=== PATIENT | male | born 1975 | race Caucasian/White ===

== ENCOUNTER 2025-07-19 21:12 | Inpatient (IN) | payer MEDICAID, OTHER ==
[~2025-07-19] VITALS: Ht 185.4 cm; Wt 150.1 kg
--- NOTE | 2025-07-19 21:39 | ED.PDOC ---
SOB-HPI HPI Comments 50-year-old female with a presents to the ED for chief complaint shortness of breath Patient states he has been having shortness of breath with associated bilateral lower extremity swelling for the past two weeks. Patient states he has been having noted shortness of breath with exertion and came due to increased shortness of breath over the past few days Patient otherwise has ordered history hypertension and is noted of hypertensive in the ED with a blood pressure of 197/103 with otherwise stable vitals Patient in the ED otherwise states that he is compliant with his medications Patient denies any other symptoms at this time Past medical history: Diabetes, hypertension, hyperlipidemia, anxiety Past Surgical history: Denies Allergies: Denies Medications: Unknown Social history: Tonight ETOH use, denies drug use, denies tobacco use mcintosh: SOB? swelling from abd down. exersional sob. tato edema 09/14 b/l HPI: Poor Historian. REVIEW OF SYSTEMS: CONSTITUTIONAL: Denies acute: fever, diaphoresis, chills, generalized weakness. HEAD: Denies acute: headache, photophobia Eyes: Denies acute: Double vision, vision loss, eye pain, eye discharge. EARS: Denies acute: tinnitus, hearing loss, ear discharge, ear pain, THROAT: Denies acute: sore throat, swelling, difficulty swallowing , pain with swallowing, change in voice. NECK: Denies acute: neck pain, neck swelling, stiff neck. HEART: Denies acute : chest pain, palpitations, LUNGS: Denies acute: wheezing, cough, hemoptysis ABDOMEN: Denies acute: abdominal pain, Nausea, Vomiting, diarrhea, melena , hematemesis, hematochezia SKIN: Denies acute: rash, redness, lesions, itchiness. EXTREMITIES: Denies acute: calf pain, numbness, tingling, weakness, denies pain in extremity. Denies acute: Low back pain. Neuro: Denies acute: focal neurological deficit, motor or sensory focal neurological deficit, tremors, seizure like activity, confusion, dizziness, change in mental status, loss of bowel or bladder function, cauda equina like symptoms. : Denies acute: dysuria, hematuria, flank pain, increase in urinary frequency. PSYCH: Denies acute: hallucination, suicidal ideation, homicidal ideation. PHYSICAL EXAM: General: -----mild---acute distress, awake and alert. Head: normocephalic, atraumatic. No raccoon's eyes, no carmona sign. Neck: supple, trachea is midline, no swelling. Throat: Normal phonation. Eyes:, no erythema, no purulent discharge, no proptosis, no icterus. Heart: regular rate, regular rhythm, no significant murmur appreciated. Lungs: no apparent respiratory distress, Able to speak in full sentences. No wheezing, no rhonchi, no crackles. No stridors Clear to auscultation bilaterally. Abdomen: non tender to palpation, non distended, soft, no guarding, no rebound, + bowel sounds. Obese Neuro: Awake, Alert, oriented to name, self, situation, follows commands GCS=15. Speech is normal. Skin: no petechia, no purpura, no cyanosis, non-pale, not jaundice. Lower extremities: --2/4 b/l - Pitting edema no deformity, no focal swelling, no calf TTP. Makes eye contact. moves all four extremities. Face: no apparent facial droop. Ambulating in the ED independently. ED COURSE: DISCLAIMER: This medical document was created using an electronic medical record system with voice recognition software and computerized dictation system. Although this document has been carefully reviewed, there might still be some phonetic and typographical errors. Occasional wrong-word or "sound-alike" substitutions may have occurred due to the inherent limitations of voice recognition software. These areas are purely typographical due to imperfections of the software programs and do not reflect any compromise in the patient's medical care. Please read the chart carefully and recognize, using context, where these substitutions have occurred. Chief Complaint: Shortness of Breath Time Seen by MD: 21:38 Reviewed notes: Medications, Allergies Information Source: Patient Mode of Arrival: Ambulatory Brought in by: self Past Medical History PAST MEDICAL HISTORY: DM, High Lipids, HTN Surgical History: Denies all surgeries Family History Family History: Reviewed,noncontributory to illness Social History Smoker: Non-Smoker Alcohol: Denies ETOH Use Drugs: Denies Drug Use Lives In: Home EKG EKG : Pulse Rate (adult): 77 [place]: Normal Cardiac Rhythm: NSR Block: None Hypertrophy: None ST: Normal Was a procedure done? Was a procedure done?: No Differential Dx Differential Diagnosis: Other (DDx include ACS, unstable angina, anxiety, PE, pneumothroax, neoplasm, cardiac ischemia, COPD, asthma, CHF, pleural effusion, tobacco abuse, pneumonia, hypoxia, hypercapnia, anemia., infection/sepsis., pulmonary edema. Asthma, Cardiac tamponade, infection.) X-Ray, Labs, Meds, VS Vital Signs Date Time Temp Pulse Resp B/P (MAP) Pulse Ox O2 Delivery O2 Flow Rate FiO2 07/19/25 21:39 77 07/19/25 21:23 77 07/19/25 21:13 97.3 79 20 197/103 95 97.3 Lab Test 07/20/25 00:17 07/19/25 23:34 07/19/25 22:27 Range/Units Blood Gas Specimen Type Arterial Blood Gas Sample Site Right radial Blood Gas Patient Temperature 37.0 Arterial Blood Date Drawn [id number] Arterial Blood pH 7.383 7.350-7.450 Arterial Blood Partial Pressure CO2 43.8 35.0-48.0 mmHg Arterial Blood Partial Pressure O2 70.7 L 83.0-108.0 mmHg Arterial Blood HCO3 25.5 21.0-28.0 mmol/L Arterial Blood Oxygen Saturation 94.2 94.0-98.0 % Arterial Blood Base Excess 0.3 -2.0-3.0 mmol/L Arterial Blood Oxyhemoglobin 92.4 L 94.0-98.0 % Arterial Blood Carboxyhemoglobin 1.4 0.5-1.5 % Arterial Blood Methemoglobin 0.5 0.0-1.5 % Arterial Blood Deoxyhemoglobin 5.7 H 0.0-5.0 % Harpal Test Positive Blood Gas Total Hemoglobin 11.30 L 13.5-17.5 g/dL Blood Gas Modality Room air Blood Gas Spontaneous Rate 18 FiO2 % 21.0 Troponin I High Sensitivity 16 16 </=54 ng/L White Blood Count 9.4 4.4-10.8 10^3/uL Red Blood Count 3.87 L 4.5-5.90 10^6/uL Hemoglobin 10.9 L 13.5-17.5 g/dL Hematocrit 32.8 L 41.0-53.0 % Mean Corpuscular Volume 84.7 80.0-100.0 fL Mean Corpuscular Hemoglobin 28.2 28.0-32.0 pg Mean Corpuscular Hemoglobin Concent 33.3 32.0-36.0 g/dL Red Cell Distribution Width 15.6 H 11.8-14.3 % Platelet Count 299 140-450 10^3/uL Mean Platelet Volume 6.7 L 6.9-10.8 fL Neutrophils (%) (Auto) 71.0 37.0-80.0 % Lymphocytes (%) (Auto) 20.0 10.0-50.0 % Monocytes (%) (Auto) 6.8 0.0-12.0 % Eosinophils (%) (Auto) 1.8 0.0-7.0 % Basophils (%) (Auto) 0.4 0.0-2.0 % Neutrophils # (Auto) 6.7 1.6-8.6 10 ^3/uL Lymphocytes # (Auto) 1.9 0.4-5.4 10 ^3/uL Monocytes # (Auto) 0.6 0-1.3 10 ^3/uL Eosinophils # (Auto) 0.2 0-0.8 10 ^3/uL Basophils # (Auto) 0 0-0.2 10 ^3/uL Nucleated Red Blood Cells 0.0 % Sodium Level 142 136-145 mmol/L Potassium Level 3.9 3.5-5.1 mmol/L Chloride Level 106 98-107 mmol/L Carbon Dioxide Level 30 20-31 mmol/L Anion Gap 6 5-15 Blood Urea Nitrogen 26 H 9-23 mg/dL Creatinine 1.12 0.700-1.30 mg/dL Glomerular Filtration Rate Calc 80 >90 mL/min BUN/Creatinine Ratio 23.2 H 10.0-20.0 Serum Glucose 74 74-106 mg/dL Calcium Level 9.3 8.7-10.4 mg/dL Total Bilirubin 0.2 0.2-1.0 mg/dL Aspartate Amino Transferase (AST) 22 13-40 U/L Alanine Aminotransferase (ALT) 18 7-40 U/L Alkaline Phosphatase 182 H 46-116 U/L B-Type Natriuretic Peptide 46.58 0-100 pg/mL Total Protein 6.7 5.7-8.2 g/dL Albumin 3.9 3.2-4.8 g/dL [address] [address] Ph: [phone] DIAGNOSTIC IMAGING Diagnostic Imaging Report : [id number] Signed PATIENT: SULAIMAN MCINTOSH ACCT: [id number] UNIT: [id number] : 1975 LOC: ER ROOM / BED: / AGE / SEX: 50 / M ADM STATUS: REG ER SERVICE 14 ORDERING PHYSICIAN: SERGIO DAVIS DO PROCEDURE(s): CXRP - CHEST PORTABLE REASON: SOB ORDER NUMBER(s): [id number], ACCESSION NUMBER(s): [id number] CHEST RADIOGRAPH INDICATION: SOB TECHNIQUE: Single frontal view of the chest was obtained. COMPARISON: None FINDINGS: Pulmonary vascular congestion. No significant pleural effusion. No pneumothorax. Mildly enlarged cardiomediastinal silhouette. IMPRESSION: Cardiomegaly and pulmonary vascular congestion. ATED BY: VIVI SPIVEY MD DICTATED DATE/TIME: 07/19/252247 SIGNED BY: VIVI SPIVEY MD SIGNED DATE/TIME: 07/19/252247 CC: Time of 1ST Reevaluation: 22:10 Reevaluation 1ST: Unchanged Patient Education/Counseling: Diagnosis, Treatment Family Education/Counseling: No Family Present Comments MDM: patient presented with the above HPI.--volume overload and dyspnea---workup was initiated. patient was found with the above mentioned diagnosis. the following medications were ordered: please refer to order lists of meds and tests obtained by myself Dr. Davis. Patient ED course and VS have been stabilized. Patient has been reassessed in the ED and remained in a stable condition. Pertinent incidental findings were discussed with the patient and/or family. Patient/family voices understanding and is agreeable with plan. Patient has been observed in the ED adequate length of time to insure improvement/stability. Escalation of care considered: Consideration of escalation to observation or admission Patient was ADMITTED to the medicine team for further evaluation and treatment of their presentation. All the reports of any imaging studies that were ordered by myself were reviewed by myself. SEPSIS Sepsis Screen Date sepsis recognized/suspect: Jul 19, 2025 Time Sepsis recognized/suspect: 2112 Recent Procedure: No On Antibiotic Therapy: No Respiratory Rate >20: No Heart Rate >90: No Temp<36 C (96.8 F) or >38.3 C: No SBP <90 or MAP <65 mmHG: No New Acute Mental Status Change: No Is the patient on CPAP, BIPAP,: No Physician Orders Organizational Development Consultant (07/19/25 ) Urinalysis (07/19/25 22:15) Chest Portable (07/19/25 22:15) Troponin-I Hs (07/20/25 01:15) Abg W/ Co-Ox (07/19/25 23:54) Vital Signs Date Time Temp Pulse Resp B/P (MAP) Pulse Ox O2 Delivery O2 Flow Rate FiO2 07/19/25 21:39 77 07/19/25 21:23 77 07/19/25 21:13 97.3 79 20 197/103 95 97.3 Laboratory Tests Test 07/19/25 22:27 White Blood Count 9.4 10^3/uL (4.4-10.8) Departure 1 Departure Time of Disposition: 00:49 Impression: Primary Impression: Dyspnea Additional Impressions: Hypoxemia Volume overload Pulmonary vascular congestion Disposition: ADMITTED INPATIENT Admit to: Tele Condition: Guarded Discharged With: Self Critical Care Note Critical Care Time?: Yes (35 min-critical care time only) Heart Score Heart Score: Heart Score Response (Comments) Value History Slightly Suspicious 0 EKG Normal 0 Age 45-64 1 Risk Factors >3 or Hx ASHD 2 Troponin Normal limit 0 Total 3 I personally scribed for SERGIO DAVIS DO ([email or web address]) on 07/19/25 at 21:39. Electronically submitted by Ashley Estrella ([email or web address]). I personally scribed for SERGIO DAVIS DO ([email or web address]) on 07/19/25 at 22:54. Electronically submitted by Cali Alcaraz ([email or web address]). SERGIO DAVIS DO Jul 19, 2025 21:39
--- NOTE | 2025-07-19 22:17 | ECG ---
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
--- NOTE | 2025-07-19 22:50 | DVH ---
CHEST RADIOGRAPH INDICATION: SOB TECHNIQUE: Single frontal view of the chest was obtained. COMPARISON: None FINDINGS: Pulmonary vascular congestion. No significant pleural effusion. No pneumothorax. Mildly enlarged cardiomediastinal silhouette. IMPRESSION: Cardiomegaly and pulmonary vascular congestion.
[2025-07-19 22:51] LABS: Hematocrit 32.8 % (41.0-53.0); Hemoglobin 10.9 g/dL (13.5-17.5); Mean Corpuscular Hemoglobin 28.2 pg (28.0-32.0); Mean Corpuscular Volume 84.7 fL (80.0-100.0); Nucleated Red Blood Cells % 0.0 %
[2025-07-19 23:18] LABS: Alanine Aminotransferase 18 U/L (7-40); Albumin 3.9 g/dL (3.2-4.8); Anion Gap 6 (5-15); BUN/Creatinine Ratio 23.2 (10.0-20.0); Calcium 9.3 mg/dL (8.7-10.4); Carbon Dioxide 30 mmol/L (20-31); Chloride 106 mmol/L (98-107); Glucose 74 mg/dL (74-106); Potassium 3.9 mmol/L (3.5-5.1); Sodium 142 mmol/L (136-145); Total Protein 6.7 g/dL (5.7-8.2)
[2025-07-19 23:26] LABS: Alkaline Phosphatase 182 U/L (46-116); Bilirubin, Total 0.2 mg/dL (0.2-1.0); Blood Urea Nitrogen 26 mg/dL (9-23)
[2025-07-20 00:30] LABS: Base Excess 0.3 mmol/L (-2.0-3.0)
[2025-07-20] MEDS ORDERED: MORPHINE SULFATE INJ 2 MG/ml SYRG IV PRN (01:00)
[2025-07-20] MEDS ORDERED: TEMAZEPAM 15 MG CAP PO PRN (01:00)
[2025-07-20] MEDS ORDERED: DEXTROSE (50%) 50ML SYRG IV PRN (01:00)
[2025-07-20] MEDS ORDERED: NITROGLYCERIN 0.4 MG SL TAB SL PRN (01:00)
[2025-07-20] MEDS ORDERED: ALBUTEROL SULF 2.5 MG/0.5ML(0.5%) NEB SOLN NEB PRN (01:00)
--- NOTE | 2025-07-20 01:17 | DVHHP2 ---
History of Present Illness Reason for Visit: Shortness for breath History of Present Illness 50-year-old male presents for evaluation of shortness for breath. Patient reports a one-week history of worsening shortness for breath with associated chest tightness and lower extremity swelling. He states symptoms worse with exertion. He also reports orthopnea. No fever or chills. Past Medical History Diabetes mellitus, hypertension, CHF, dyslipidemia Past Surgical History Denies Family History Noncontributory Smoke: No ALCOHOL: none Drugs: None Lives: with Family Review of Systems Review of Systems Review of systems are currently negative otherwise addressed in HPI. Allergies: Coded Allergies: NO KNOWN ALLERGIES (Unverified , 07/19/25) Medications Current Medications Medications Dose Ordered Sig/Carlotta Route Start Time Stop Time Status Last Admin Dose Admin Patient Own Medication 20 mg HS PO 07/20/25 22:00 UNV Lisinopril 40 mg DAILY PO 07/20/25 10:00 UNV Metoprolol Tartrate 25 mg BID PO 07/20/25 10:00 UNV Hydralazine HCl 10 mg Q6HP PRN IV 07/20/25 01:00 UNV Aspirin 81 mg DAILY PO 07/20/25 10:00 UNV Diagnostic Test (Pha) 1 strip ACHS 07/20/25 07:00 UNV Insulin Human Regular ACHS SC 07/20/25 07:00 UNV Dextrose 50 ml UD PRN IV 07/20/25 01:00 UNV Acetaminophen/ Hydrocodone Bitart 1 tab Q4HP PRN PO 07/20/25 01:00 UNV Temazepam 15 mg QHSP PRN PO 07/20/25 01:00 UNV Ondansetron HCl 4 mg Q4HP PRN IV 07/20/25 01:00 UNV Acetaminophen 650 mg Q6HP PRN PO 07/20/25 01:00 UNV Nitroglycerin 0.4 mg Q5MINP PRN SL 07/20/25 01:00 UNV Morphine Sulfate 2 mg Q30M PRN IV 07/20/25 01:00 UNV Albuterol 2.5 mg Q6HPRN PRN NEB 07/20/25 01:00 UNV Furosemide 20 mg BIDD IV 07/20/25 06:00 UNV Exam Vital Signs Vital Signs Date Time Temp Pulse Resp B/P (MAP) Pulse Ox O2 Delivery O2 Flow Rate FiO2 07/20/25 01:11 98.1 79 20 189/104 132 95 98.1 Exam Gen: 50-year-old male in mild distress, morbidly obese Skin: Warm, dry, normal color and texture, no rash. HEENT: Normocephalic atraumatic, mucous membranes moist and pink. Neck: Cervical and supraclavicular nodes normal without enlargement, trachea is midline, thyroid gland is normal without masses. Pulmonary: Clear to auscultation and percussion bilaterally. Cardiac: Regular rate and rhythm. No murmur Abdomen: Soft, nontender, nondistended, bowel sounds present all 4 quadrants, no guarding, no rigidity, no organomegaly. Extremities: No cyanosis, clubbing, plus two bilateral pedal edema Neuro: Cranial nerves II through XII grossly intact, normal affect and speech, no focal motor deficits. Labs/Xrays ORDERING PHYSICIAN: SERGIO DAVIS DO PROCEDURE(s): CXRP - CHEST PORTABLE REASON: SOB ORDER NUMBER(s): [id number], ACCESSION NUMBER(s): [id number] CHEST RADIOGRAPH INDICATION: SOB TECHNIQUE: Single frontal view of the chest was obtained. COMPARISON: None FINDINGS: Pulmonary vascular congestion. No significant pleural effusion. No pneumothorax. Mildly enlarged cardiomediastinal silhouette. IMPRESSION: Cardiomegaly and pulmonary vascular congestion. Labs Test 07/20/25 00:17 07/19/25 23:34 07/19/25 22:27 Range/Units Blood Gas Specimen Type Arterial Blood Gas Sample Site Right radial Blood Gas Patient Temperature 37.0 Arterial Blood Date Drawn [id number] Arterial Blood pH 7.383 7.350-7.450 Arterial Blood Partial Pressure CO2 43.8 35.0-48.0 mmHg Arterial Blood Partial Pressure O2 70.7 L 83.0-108.0 mmHg Arterial Blood HCO3 25.5 21.0-28.0 mmol/L Arterial Blood Oxygen Saturation 94.2 94.0-98.0 % Arterial Blood Base Excess 0.3 -2.0-3.0 mmol/L Arterial Blood Oxyhemoglobin 92.4 L 94.0-98.0 % Arterial Blood Carboxyhemoglobin 1.4 0.5-1.5 % Arterial Blood Methemoglobin 0.5 0.0-1.5 % Arterial Blood Deoxyhemoglobin 5.7 H 0.0-5.0 % Harpal Test Positive Blood Gas Total Hemoglobin 11.30 L 13.5-17.5 g/dL Blood Gas Modality Room air Blood Gas Spontaneous Rate 18 FiO2 % 21.0 Troponin I High Sensitivity 16 </=54 ng/L White Blood Count 9.4 4.4-10.8 10^3/uL Red Blood Count 3.87 L 4.5-5.90 10^6/uL Hemoglobin 10.9 L 13.5-17.5 g/dL Hematocrit 32.8 L 41.0-53.0 % Mean Corpuscular Volume 84.7 80.0-100.0 fL Mean Corpuscular Hemoglobin 28.2 28.0-32.0 pg Mean Corpuscular Hemoglobin Concent 33.3 32.0-36.0 g/dL Red Cell Distribution Width 15.6 H 11.8-14.3 % Platelet Count 299 140-450 10^3/uL Mean Platelet Volume 6.7 L 6.9-10.8 fL Neutrophils (%) (Auto) 71.0 37.0-80.0 % Lymphocytes (%) (Auto) 20.0 10.0-50.0 % Monocytes (%) (Auto) 6.8 0.0-12.0 % Eosinophils (%) (Auto) 1.8 0.0-7.0 % Basophils (%) (Auto) 0.4 0.0-2.0 % Neutrophils # (Auto) 6.7 1.6-8.6 10 ^3/uL Lymphocytes # (Auto) 1.9 0.4-5.4 10 ^3/uL Monocytes # (Auto) 0.6 0-1.3 10 ^3/uL Eosinophils # (Auto) 0.2 0-0.8 10 ^3/uL Basophils # (Auto) 0 0-0.2 10 ^3/uL Nucleated Red Blood Cells 0.0 % Sodium Level 142 136-145 mmol/L Potassium Level 3.9 3.5-5.1 mmol/L Chloride Level 106 98-107 mmol/L Carbon Dioxide Level 30 20-31 mmol/L Anion Gap 6 5-15 Blood Urea Nitrogen 26 H 9-23 mg/dL Creatinine 1.12 0.700-1.30 mg/dL Glomerular Filtration Rate Calc 80 >90 mL/min BUN/Creatinine Ratio 23.2 H 10.0-20.0 Serum Glucose 74 74-106 mg/dL Calcium Level 9.3 8.7-10.4 mg/dL Total Bilirubin 0.2 0.2-1.0 mg/dL Aspartate Amino Transferase (AST) 22 13-40 U/L Alanine Aminotransferase (ALT) 18 7-40 U/L Alkaline Phosphatase 182 H 46-116 U/L B-Type Natriuretic Peptide 46.58 0-100 pg/mL Total Protein 6.7 5.7-8.2 g/dL Albumin 3.9 3.2-4.8 g/dL SEPSIS Sepsis Screen Date sepsis recognized/suspect: Jul 19, 2025 Time Sepsis recognized/suspect: 2112 Recent Procedure: No On Antibiotic Therapy: No Respiratory Rate >20: No Heart Rate >90: No Temp<36 C (96.8 F) or >38.3 C: No SBP <90 or MAP <65 mmHG: No New Acute Mental Status Change: No Is the patient on CPAP, BIPAP,: No Physician Orders Airplane Mechanic Apprentice (07/19/25 ) Urinalysis (07/19/25 22:15) Chest Portable (07/19/25 22:15) Troponin-I Hs (07/20/25 01:15) Abg W/ Co-Ox (07/19/25 23:54) * Cardiology Consult (07/20/25 00:56) (Nf) Crestor (07/20/25 22:00) Lisinopril Tablet (Zestril Tablet) (07/20/25 10:00) Metoprolol Tartrate Tablet (Lopressor Ta (07/20/25 10:00) Hydralazine Injection (Apresoline Inject (07/20/25 01:00) Aspirin Tablet (07/20/25 10:00) Basic Metabolic Panel (07/21/25 04:00) Glucose Blood (Accu-Chek Comfort Curve T (07/20/25 07:00) Insulin R (Human) (Insulin R) (07/20/25 07:00) Dextrose 50% Syringe (07/20/25 01:00) Admit (07/20/25 00:56) Hydrocodone-Acet 5/325mg Tab (Addison 5/32 (07/20/25 01:00) Temazepam (Restoril) (07/20/25 01:00) Ondansetron Hcl (Zofran) (07/20/25 01:00) Cardiac Diet-2gna,Lofat,Lochol (07/20/25 Breakfast) Echo 2d Mode Cardiac Dop (07/20/25 00:56) Condition: Stable (07/20/25 00:56) Acetaminophen Tablet (Tylenol Tablet) (07/20/25 01:00) Bedrest With Bathroom Privileg (07/20/25:56) Nitroglycerin Sublingual (Ntrostat Subli (07/20/25 01:00) Morphine Sulfate Injection (07/20/25 01:00) Stat Ekg For Chest Pain (07/20/25:56) Notify Md Of Changes From Base (07/20/25 00:56) Tub Operator For 24 Hours (07/20/25 00:56) Emergency Dysrhythmia Protocol (07/20/25:56) Rhythm Strips Once Every Shift (07/20/25 00:56) Oxygen By Nasal Cannula (07/20/25 00:56) Albuterol Medneb (Ventolin Medneb) (07/20/25 01:00) Furosemide Injection (Lasix Injection) (07/20/25 06:00) Vital Signs Date Time Temp Pulse Resp B/P (MAP) Pulse Ox O2 Delivery O2 Flow Rate FiO2 07/20/25 01:11 98.1 79 20 189/104 (132) 95 98.1 07/19/25 21:39 77 07/19/25 21:23 77 07/19/25 21:13 97.3 79 20 197/103 95 97.3 Laboratory Tests Test 07/19/25 22:27 White Blood Count 9.4 10^3/uL (4.4-10.8) Assessment/Plan Assessment/Plan Assessment Acute on chronic respiratory failure CHF exacerbation Hypertensive urgency Diabetes mellitus Morbid obesity Plan Admit the patient to telemetry to the hospitalist IV Lasix Cardiology consultation Echocardiogram pending Resume home medications Continue treatment per orders Plan discussed with: Patient My Orders Orders - SANDY POLK Procedure Category Date Status Time * Cardiology Consult CONS 07/20/25 Transmitted 00:56 (Nf) Crestor PHA 07/20/25 Logged 22:00 Lisinopril Tablet PHA 07/20/25 Logged (Zestril Tablet) 10:00 Metoprolol Tartrate PHA 07/20/25 Logged Tablet (Lopressor Ta 10:00 Hydralazine Injection PHA 07/20/25 Logged (Apresoline Inject 01:00 Aspirin Tablet PHA 07/20/25 Logged 10:00 Basic Metabolic Panel LAB 07/21/25 Verified 04:00 Glucose Blood PHA 07/20/25 Logged (Accu-Chek Comfort 07:00 Insulin R (Human) PHA 07/20/25 Logged (Insulin R) 07:00 Dextrose 50% Syringe PHA 07/20/25 Logged 01:00 Admit ADMIT 07/20/25 Transmitted 00:56 Hydrocodone-Acet PHA 07/20/25 Logged 5/325mg Tab (Addison 01:00 Temazepam (Restoril) PHA 07/20/25 Logged 01:00 Ondansetron Hcl PHA 07/20/25 Logged (Zofran) 01:00 Cardiac DIET 07/20/25 Transmitted Diet-2gna,Lofat,Lochol Breakfast Echo 2d Mode Cardiac US 07/20/25 Logged DOP 00:56 Condition: Stable [facility] 07/20/25 In Process 00:56 Acetaminophen Tablet [facility] 07/20/25 Logged (Tylenol Tablet) 01:00 Bedrest With Bathroom [facility] 07/20/25 In Process Privileg 00:56 Nitroglycerin PHA 07/20/25 Logged Sublingual (Ntrostat 01:00 Morphine Sulfate PHA 07/20/25 Logged Injection 01:00 Stat Ekg For Chest [facility] 07/20/25 In Process Pain 00:56 Notify Of Changes [facility] 07/20/25 In Process From Base 00:56 Tub Operator For [facility] 07/20/25 In Process 24 Hours 00:56 Emergency Dysrhythmia [facility] 07/20/25 In Process Protocol 00:56 Rhythm Strips Once [facility] 07/20/25 In Process Every Shift 00:56 Oxygen By Nasal RT 07/20/25 Transmitted Cannula 00:56 Albuterol Medneb PHA 07/20/25 Logged (Ventolin Medneb) 01:00 Furosemide Injection PHA 07/20/25 Logged (Lasix Injection) 06:00 Date of Service: Jul 20, 2025 Billing Provider: Berkley Iverson Common Visit Codes: [id number] INP/OBS CARE (HIGH) SANDY POLK [facility] Jul 20, 2025 01:17
[2025-07-20] MEDS: FUROSEMIDE 100 MG/10ML VIAL IV ONE (02:07)
[2025-07-20 02:15] VITALS: BP 189/104; PULSE 79; RESP 20; TEMP 98.1; O2SAT 95
[2025-07-20 02:27] VITALS: O2SAT 98
[2025-07-20 03:16] LABS: Urine Protein, UAD 2+ (Negative)
[2025-07-20] MEDS: METOPROLOL TARTRATE 25 MG TAB PO SCH (07:58)
[2025-07-20] MEDS: ASPirin-EC 81 mg tab PO SCH (07:59)
[2025-07-20] MEDS: LISINOPRIL 20 MG TAB PO SCH (07:59)
[2025-07-20] MEDS: ACCU-CHEK COMFORT CURVE STRIP VI SCH (08:00)
[2025-07-20] MEDS: InsuLIN REG 1unit/0.01ml Soln (100units/ml) SC SCH (08:00)
[2025-07-20] MEDS: FUROSEMIDE 20 MG/2 ML VIAL IV SCH (08:00)
[2025-07-20 08:26] VITALS: O2SAT 95
--- NOTE | 2025-07-20 10:52 | DVHINCON2 ---
Date Seen: Jul 20, 2025 Referring Physician SEB Ferris Reason for Consultation CHF History of Present Illness This is a 50-year-old man who presented to the emergency room with a chief complaint of shortness of breath for one week. The patient complains of progressive shortness of breath associated with PND, orthopnea, wheezing, increased abdominal girth, and bilateral lower extremity edema. Denies chest pain, palpitations, diaphoresis, dizziness, or syncopal events. He underwent a 12 lead electrocardiogram revealing a sinus rhythm with nonspecific T-wave inversion to lateral leads. Reports a recent visit to [facility] on 05/2025. At that time, he was treated with and sent home with lasix with PCP refilling it at [facility]. He denies undergoing a cardiac evaluation or cardiac work-up including a transthoracic echocardiogram, stress test, or cardiac catheterization. Reports a significant medical history of hypertension, dyslipidemia, insulin-dependent diabetes mellitus, anxiety, and morbid obesity. Past Medical History Past medical history reviewed. No other significant than mentioned above. Past Surgical History Past surgical history reviewed. No other significant than mentioned above. Family History Family history reviewed. Mother with CHF. Social History Denies the use of illicit drugs or tobacco use. Admits to occasional alcohol use. Allergies: Coded Allergies: NO KNOWN ALLERGIES (Unverified , 07/19/25) Home Meds Home medications reviewed. Current Medications Current Medications Medications (Trade) Dose Ordered Sig/Carlotta Route PRN Reason Start Time Stop Time Status Last Admin Atorvastatin Calcium (Lipitor) 40 mg HS PO 07/20/25 22:00 Lisinopril (Zestril Tablet) 40 mg DAILY PO 07/20/25 10:00 07/20/25 07:59 Metoprolol Tartrate (Lopressor Tablet) 25 mg BID PO 07/20/25 10:00 07/20/25 07:58 Hydralazine HCl (Apresoline Injection) 10 mg Q6HP PRN IV SBP>150 07/20/25 01:00 Aspirin (Ecotrin Enteric Coated Tablet) 81 mg DAILY PO 07/20/25 10:00 07/20/25 07:59 Diagnostic Test (Pha) (Accu-Chek Comfort Curve T) 1 strip ACHS 07/20/25 07:00 07/20/25 08:00 Insulin Human Regular (InsuLIN R) ACHS SC 07/20/25 07:00 Dextrose 50 ml UD PRN IV Blood Sugar LESS THAN 60 07/20/25 01:00 Acetaminophen/ Hydrocodone Bitart ([place]out 5/325MG Tab) 1 tab Q4HP PRN PO MODERATE PAIN (4-6 PAIN SCALE) 07/20/25 01:00 Temazepam (Restoril) 15 mg QHSP PRN PO FOR INSOMNIA 07/20/25 01:00 Ondansetron HCl (Zofran) 4 mg Q4HP PRN IV NAUSEA / VOMITING 07/20/25 01:00 Acetaminophen (Tylenol Tablet) 650 mg Q6HP PRN PO PAIN SCALE 1-3 OR TEMP>100.4 07/20/25 01:00 Nitroglycerin (Ntrostat Sublingual) 0.4 mg Q5MINP PRN SL FOR CHEST PAIN 07/20/25 01:00 Morphine Sulfate 2 mg Q30M PRN IV FOR CHEST PAIN 07/20/25 01:00 Albuterol (Ventolin Medneb) 2.5 mg Q6HPRN PRN NEB SHORTNESS OF BREATH 07/20/25 01:00 Furosemide (Lasix Injection) 20 mg BIDD IV 07/20/25 06:00 07/20/25 08:00 Review of Systems Constitutional: No symptom reported Ears, Nose, & Throat: No symptom reported Eyes: No symptom reported Neurological: No symptoms reported Pulmonary/Respiratory: SOB, HAWKINS, PND, orthopnea Cardiovascular: BLE edema Gastrointestinal: Increased abdominal girth Genitourinary: No symptom reported Musculoskeletal: No symptom reported Skin: No symptom reported Psychiatric: No symptom reported Endocrine: No symptom reported Hemotologic/Lymphatic: No symptom reported Vital Signs Vital Signs Date Time Temp Pulse Resp B/P (MAP) Pulse Ox O2 Delivery O2 Flow Rate FiO2 07/20/25 08:00 179/86 07/20/25 07:58 79 07/20/25 07:12 97.9 20 96 97.9 07/20/25 02:27 Room Air* 0 21 Physical Exam General Appearance: Cooperative. Well developed. Morbidly obese. In no acute distress Head Exam: Normal inspection Neck Exam: Normal inspection. Non-tender. Normal alignment Pulmonary/Respiratory: Chest non-tender. Diminished bilateral breath sounds Cardiovascular/Chest: Regular rate and rhythm. S1, S2. Sinus rhythm with nonspecific T-wave inversion to lateral leads No murmurs. No JVD. Peripheral Pulses: 2+ Radial (R). 2+ Radial (L). 2+ Pedal (R). 2+ Pedal (L) Abdominal Exam: Normal bowel sounds Ankle Exam: Positive ankle nonpitting edema Lower extremities: Positive lower extremity nonpitting edema Neuro/Mental Status: A&O x4. Coherent Thoughts/Psych: Normal thought pattern. Appropriate mood and affect. Good judgement and insight Appearance: In no acute distress Skin Exam: Normal inspection. Normal color. Warm. Dry Labs/Diagnostic Data Labs Test 07/20/25 07:52 07/20/25 01:41 07/20/25 01:39 07/20/25 00:17 Range/Units POC Glucose 82 70-106 mg/dl Urine Color Light-yellow Yellow Urine Clarity Clear Clear Urine pH 5.5 5.0-9.0 Urine Specific [place] 1.014 1.001-1.035 Urine Protein 2+ H Negative Urine Ketones Negative Negative Urine Blood 1+ H Negative /uL Urine Nitrite Negative Negative Urine Bilirubin Negative Negative Urine Urobilinogen Normal Negative mg/dL Urine Leukocyte Esterase Negative Negative /uL Urine RBC 3 0 - 3 /hpf Urine Microscopic WBC < 1 0-3 /HPF Urine Squamous Epithelial Cells Few <5 /hpf Urine Bacteria None seen None Seen /hpf Urine Mucus Few None Seen Urine Sperm Present None Seen /hpf Urine Glucose Normal Normal mg/dL Troponin I High Sensitivity 15 </=54 ng/L Blood Gas Specimen Type Arterial Blood Gas Sample Site Right radial Blood Gas Patient Temperature 37.0 Arterial Blood Date Drawn [id number] Arterial Blood pH 7.383 7.350-7.450 Arterial Blood Partial Pressure CO2 43.8 35.0-48.0 mmHg Arterial Blood Partial Pressure O2 70.7 L 83.0-108.0 mmHg Arterial Blood HCO3 25.5 21.0-28.0 mmol/L Arterial Blood Oxygen Saturation 94.2 94.0-98.0 % Arterial Blood Base Excess 0.3 -2.0-3.0 mmol/L Arterial Blood Oxyhemoglobin 92.4 L 94.0-98.0 % Arterial Blood Carboxyhemoglobin 1.4 0.5-1.5 % Arterial Blood Methemoglobin 0.5 0.0-1.5 % Arterial Blood Deoxyhemoglobin 5.7 H 0.0-5.0 % Harpal Test Positive Blood Gas Total Hemoglobin 11.30 L 13.5-17.5 g/dL Blood Gas Modality Room air Blood Gas Spontaneous Rate 18 FiO2 % 21.0 Test 07/19/25 22:27 Range/Units White Blood Count 9.4 4.4-10.8 10^3/uL Red Blood Count 3.87 L 4.5-5.90 10^6/uL Hemoglobin 10.9 L 13.5-17.5 g/dL Hematocrit 32.8 L 41.0-53.0 % Mean Corpuscular Volume 84.7 80.0-100.0 fL Mean Corpuscular Hemoglobin 28.2 28.0-32.0 pg Mean Corpuscular Hemoglobin Concent 33.3 32.0-36.0 g/dL Red Cell Distribution Width 15.6 H 11.8-14.3 % Platelet Count 299 140-450 10^3/uL Mean Platelet Volume 6.7 L 6.9-10.8 fL Neutrophils (%) (Auto) 71.0 37.0-80.0 % Lymphocytes (%) (Auto) 20.0 10.0-50.0 % Monocytes (%) (Auto) 6.8 0.0-12.0 % Eosinophils (%) (Auto) 1.8 0.0-7.0 % Basophils (%) (Auto) 0.4 0.0-2.0 % Neutrophils # (Auto) 6.7 1.6-8.6 10 ^3/uL Lymphocytes # (Auto) 1.9 0.4-5.4 10 ^3/uL Monocytes # (Auto) 0.6 0-1.3 10 ^3/uL Eosinophils # (Auto) 0.2 0-0.8 10 ^3/uL Basophils # (Auto) 0 0-0.2 10 ^3/uL Nucleated Red Blood Cells 0.0 % Sodium Level 142 136-145 mmol/L Potassium Level 3.9 3.5-5.1 mmol/L Chloride Level 106 98-107 mmol/L Carbon Dioxide Level 30 20-31 mmol/L Anion Gap 6 5-15 Blood Urea Nitrogen 26 H 9-23 mg/dL Creatinine 1.12 0.700-1.30 mg/dL Glomerular Filtration Rate Calc 80 >90 mL/min BUN/Creatinine Ratio 23.2 H 10.0-20.0 Serum Glucose 74 74-106 mg/dL Calcium Level 9.3 8.7-10.4 mg/dL Total Bilirubin 0.2 0.2-1.0 mg/dL Aspartate Amino Transferase (AST) 22 13-40 U/L Alanine Aminotransferase (ALT) 18 7-40 U/L Alkaline Phosphatase 182 H 46-116 U/L B-Type Natriuretic Peptide 46.58 0-100 pg/mL Total Protein 6.7 5.7-8.2 g/dL Albumin 3.9 3.2-4.8 g/dL Assessment Hypertensive urgency De Salvatore decompensated unspecified HF, NYHA Class III Insulin-dependent diabetes mellitus (HgbA1C 6.4%) Dyslipidemia Morbid obesity Plan/Recommendation (Dr. Miguel) We will continue further cardiac evaluation with a transthoracic echocardiogram to rule out structural heart disease. In the meantime, initiate GDMT and titrate as tolerated. Continue preload and afterload reduction, strict I&Os, daily weight, and fluid restriction. Continue aggressive blood pressure control. Replete electrolytes as necessary. Monitor ECG changes closely and notify accordingly. Further orders per clinical course. Thank you for allowing us to participate in this patient's care. Please call if you have any questions or concerns. This medical document was created using an electronic medical record system with voice recognition software and computerized dictation system. Although this document has been carefully reviewed, there might still be some phonetic and typographical errors. Occasional wrong-word or ``sound-alike substitutions may have occurred due to the inherent limitations of voice recognition software. These areas are purely typographical due to imperfections of the software programs and do not reflect any compromise in the patient's medical care. Please read the chart carefully and recognize, using context, where these substitutions have occurred. Plan discussed with: Patient, Other NYHA Physical activity limitations: Class3(Marked) ordinary (activity causes symtoms) Date of Service: Jul 20, 2025 Billing Provider: SYLVESTER AREVALO Cardiology Common Codes: [id number] INP/OBS CARE (High) SYLVESTER AREVALO Jul 20, 2025 10:52
[2025-07-20 11:58] LABS: Hematocrit 33.8 % (41.0-53.0); Hemoglobin 11.5 g/dL (13.5-17.5); Mean Corpuscular Hemoglobin 28.5 pg (28.0-32.0); Mean Corpuscular Volume 84.0 fL (80.0-100.0); Nucleated Red Blood Cells % 0.0 %
[2025-07-20 12:13] LABS: Alanine Aminotransferase 21 U/L (7-40); Albumin 4.3 g/dL (3.2-4.8); Anion Gap 9 (5-15); BUN/Creatinine Ratio 21.0 (10.0-20.0); Blood Urea Nitrogen 22 mg/dL (9-23); Calcium 9.5 mg/dL (8.7-10.4); Carbon Dioxide 30 mmol/L (20-31); Chloride 102 mmol/L (98-107); Cholesterol 106 mg/dL (< 200); Potassium 3.9 mmol/L (3.5-5.1); Sodium 141 mmol/L (136-145); Total Protein 7.2 g/dL (5.7-8.2); Triglycerides 127 mg/dL (< 150)
[2025-07-20 12:14] LABS: Alkaline Phosphatase 200 U/L (46-116); Bilirubin, Total 0.4 mg/dL (0.2-1.0); Glucose 139 mg/dL (74-106); HDL Cholesterol 30 mg/dL (40-59); Magnesium 1.4 mg/dL (1.6-2.6)
[2025-07-20] MEDS: MAGNESIUM SULFATE 1GM/100ML 100 ML IV ONE (14:27)
[2025-07-20] MEDS: hydrALAZINE HCL 20 MG/ML VL IV PRN (14:30)
--- NOTE | 2025-07-20 16:18 | DVHPN2 ---
Subjective Patient continues to report having shortness of breath ambulation as well as lower extremity swelling. Reviewed: Care Plan, H&P, Labs, Medications Changes from previous H/P or p: No Changes General: Per HPI Objective Vitals Vital Signs Date Time Temp Pulse Resp B/P (MAP) Pulse Ox O2 Delivery O2 Flow Rate FiO2 07/20/25 14:30 181/108 07/20/25 14:30 75 07/20/25 08:26 95 Nasal Cannula 2.0 07/20/25 08:26 28 07/20/25 07:12 97.9 20 97.9 General Appearance: Alert, Oriented X3, Cooperative, mild distress HEENT: Atraumatic, PERRLA Lungs: Clear to auscultation, Normal air movement Cardiovascular: Normal S1, Normal S2 Abdomen: Normal bowel sounds, Soft, No tenderness Genitourinary: No Apparent Abnormalities Musculoskeletal: Normal sensory function, Normal motor function Extremities: Normal pulses, Other (Lower extremity swelling) Neuro: Normal gait, Normal speech Skin: Dry, Intact Psych/Mental Status: Mental status NL, Mood NL Medications Current Medications Medications Dose Ordered Sig/Carlotta Route Start Time Stop Time Status Last Admin Dose Admin Atorvastatin Calcium 40 mg HS PO 07/20/25 22:00 Lisinopril 40 mg DAILY PO 07/20/25 10:00 07/20/25 07:59 40 MG Metoprolol Tartrate 25 mg BID PO 07/20/25 10:00 07/20/25 07:58 25 MG Hydralazine HCl 10 mg Q6HP PRN IV 07/20/25 01:00 07/20/25 14:30 10 MG Aspirin 81 mg DAILY PO 07/20/25 10:00 07/20/25 07:59 81 MG Diagnostic Test (Pha) 1 strip ACHS 07/20/25 07:00 07/20/25 11:37 1 STRIP Insulin Human Regular ACHS SC 07/20/25 07:00 07/20/25 11:42 2 UNITS Dextrose 50 ml UD PRN IV 07/20/25 01:00 Acetaminophen/ Hydrocodone Bitart 1 tab Q4HP PRN PO 07/20/25 01:00 Temazepam 15 mg QHSP PRN PO 07/20/25 01:00 Ondansetron HCl 4 mg Q4HP PRN IV 07/20/25 01:00 Acetaminophen 650 mg Q6HP PRN PO 07/20/25 01:00 Nitroglycerin 0.4 mg Q5MINP PRN SL 07/20/25 01:00 Morphine Sulfate 2 mg Q30M PRN IV 07/20/25 01:00 Albuterol 2.5 mg Q6HPRN PRN NEB 07/20/25 01:00 Furosemide 40 mg BIDD IV 07/20/25 18:00 Empaglifozin 10 mg DAILY PO 07/21/25 10:00 Laboratory Results Laboratory Tests 07/20/25 11:46 Chemistry Test 07/19/25 22:27 07/20/25 11:46 Albumin 3.9 g/dL (3.2-4.8) 4.3 g/dL (3.2-4.8) Calcium Level 9.3 mg/dL (8.7-10.4) 9.5 mg/dL (8.7-10.4) Total Protein 6.7 g/dL (5.7-8.2) 7.2 g/dL (5.7-8.2) Magnesium Level 1.4 mg/dL (1.6-2.6) L Lipid panel Test 07/20/25 11:46 Cholesterol Level 106 mg/dL (< 200) HDL Cholesterol 30 mg/dL (40-59) L Triglycerides Level 127 mg/dL (< 150) Cardiac Markers Test 07/19/25 22:27 07/20/25 11:46 B-Type Natriuretic Peptide 46.58 pg/mL (0-100) 32.92 pg/mL (0-100) LFT Test 07/19/25 22:27 07/20/25 11:46 Alanine Aminotransferase (ALT) 18 U/L (7-40) 21 U/L (7-40) Alkaline Phosphatase 182 U/L (46-116) H 200 U/L (46-116) H Aspartate Amino Transferase (AST) 22 U/L (13-40) 22 U/L (13-40) Total Bilirubin 0.2 mg/dL (0.2-1.0) 0.4 mg/dL (0.2-1.0) HgA1c, TSH Test 07/20/25 11:46 Hemoglobin A1c 6.4 % A1C (<5.7) H Thyroid Stimulating Hormone (TSH) 0.74 uIU/mL (0.55-4.78) Urinalysis Test 07/20/25 01:41 Urine Color Light-yellow (Yellow) Urine Clarity Clear (Clear) Urine pH 5.5 (5.0-9.0) Urine Specific [place] 1.014 (1.001-1.035) Urine Protein 2+ (Negative) H Urine Ketones Negative (Negative) Urine Blood 1+ /uL (Negative) H Urine Nitrite Negative (Negative) Urine Bilirubin Negative (Negative) Urine Urobilinogen Normal mg/dL (Negative) Urine Leukocyte Esterase Negative /uL (Negative) Urine RBC 3 /hpf (0 - 3) Urine Microscopic WBC < 1 /HPF (0-3) Urine Squamous Epithelial Cells Few /hpf (<5) Urine Bacteria None seen /hpf (None Seen) Urine Mucus Few (None Seen) Urine Sperm Present /hpf (None Seen) Urine Glucose Normal mg/dL (Normal) Blood Gas Results Test 07/20/25 00:17 Arterial Blood pH 7.383 (7.350-7.450) FiO2 % 21.0 Labs and/or images reviewed: Labs reviewed by me, Image(s) reviewed by me Assessment/Plan Assessment/Plan Impression: -probable acute diastolic heart failure -morbid obesity -diabetes mellitus type 2 -hypomagnesemia -dyslipidemia Plan: -cardiology consultation: Recommendations reviewed -echocardiogram pending -guideline directed medical therapy -IV diuresis -potassium replacement -regular insulin sliding scale -Lifestyle modification education: 10 minutes spent discussing with the patient the need to alter caloric and quality of food and -repeat labs in a.m. Total time spent with patient discussing and formulating plan of care: 35 minutes. This medical document was created using an electronic medical record system with Netscape dictation system. Although this document has been carefully reviewed, there may still be some phonetic and typographical errors. These areas are purely typographical due to imperfections of the software programs, and do not reflect any compromise in the patient's medical care. Plan discussed with: Patient, Other (RN) Date of Service: Jul 20, 2025 Billing Provider: CHANTALE MINOR NP Common Visit Codes: [id number] INP/OBS CARE(HIGH) CHANTALE MINOR NP Jul 20, 2025 16:18
[2025-07-20] MEDS: FUROSEMIDE 40 MG/4 ML VIAL IV SCH (17:20)
[2025-07-20 20:50] VITALS: O2SAT 94
[2025-07-20 21:00] VITALS: BP 141/72; PULSE 83; RESP 17; TEMP 97.9; O2SAT 95
[2025-07-20 22:49] VITALS: BP 142/72; PULSE 87; RESP 17; TEMP 97.9; O2SAT 95
[2025-07-20] MEDS: ATORVASTATIN 20 MG TAB PO SCH (23:10)
--- NOTE | 2025-07-20 23:46 | DVHINCON2 ---
Date Seen: Jul 20, 2025 Referring Physician SEB Ferris Reason for Consultation CHF History of Present Illness This is a 50-year-old man with a past medical history of hypertension, dyslipidemia, insulin-dependent diabetes mellitus, anxiety, and morbid obesity who presented to the emergency room with a complaint of shortness of breath for one week. The patient complains of progressive shortness of breath associated with PND, orthopnea, wheezing, increased abdominal girth, and bilateral lower extremity edema. Denies chest pain, palpitations, diaphoresis, dizziness, or syncopal events. He underwent a 12 lead electrocardiogram revealing a sinus rhythm with nonspecific T-wave inversion to lateral leads. Reports a recent visit to [facility] on 05/2025. At that time, he was treated with and sent home with Lasix with his PCP refilling it at [facility]. He denies undergoing a cardiac evaluation or cardiac work-up including a transthoracic echocardiogram, stress test, or cardiac catheterization. Chest x- ray showed cardiomegaly and pulmonary vascular congestion. Patient was admitted to the hospital. I am asked to consult on this patient. Past Medical History Past medical history reviewed. No other significant than mentioned above. Past Surgical History Past surgical history reviewed. No other significant than mentioned above. Allergies: Coded Allergies: NO KNOWN ALLERGIES (Unverified , 07/19/25) Current Medications Current Medications Medications (Trade) Dose Ordered Sig/Carlotta Route PRN Reason Start Time Stop Time Status Last Admin Atorvastatin Calcium (Lipitor) 40 mg HS PO 07/20/25 22:00 Lisinopril (Zestril Tablet) 40 mg DAILY PO 07/20/25 10:00 07/20/25 07:59 Metoprolol Tartrate (Lopressor Tablet) 25 mg BID PO 07/20/25 10:00 07/20/25 07:58 Hydralazine HCl (Apresoline Injection) 10 mg Q6HP PRN IV SBP>150 07/20/25 01:00 07/20/25 14:30 Aspirin (Ecotrin Enteric Coated Tablet) 81 mg DAILY PO 07/20/25 10:00 07/20/25 07:59 Diagnostic Test (Pha) (Accu-Chek Comfort Curve T) 1 strip ACHS 07/20/25 07:00 07/20/25 11:37 Insulin Human Regular (InsuLIN R) ACHS SC 07/20/25 07:00 07/20/25 11:42 Dextrose 50 ml UD PRN IV Blood Sugar LESS THAN 60 07/20/25 01:00 Acetaminophen/ Hydrocodone Bitart ([place] 5/325MG Tab) 1 tab Q4HP PRN PO MODERATE PAIN (4-6 PAIN SCALE) 07/20/25 01:00 Temazepam (Restoril) 15 mg QHSP PRN PO FOR INSOMNIA 07/20/25 01:00 Ondansetron HCl (Zofran) 4 mg Q4HP PRN IV NAUSEA / VOMITING 07/20/25 01:00 Acetaminophen (Tylenol Tablet) 650 mg Q6HP PRN PO PAIN SCALE 1-3 OR TEMP>100.4 07/20/25 01:00 Nitroglycerin (Ntrostat Sublingual) 0.4 mg Q5MINP PRN SL FOR CHEST PAIN 07/20/25 01:00 Morphine Sulfate 2 mg Q30M PRN IV FOR CHEST PAIN 07/20/25 01:00 Albuterol (Ventolin Medneb) 2.5 mg Q6HPRN PRN NEB SHORTNESS OF BREATH 07/20/25 01:00 Furosemide (Lasix Injection) 20 mg BIDD IV 07/20/25 06:00 07/20/25 10:55 DC 07/20/25 08:00 Furosemide (Lasix Injection) 40 mg BIDD IV 07/20/25 18:00 Empaglifozin (Jardiance) 10 mg DAILY PO 07/21/25 10:00 Review of Systems Constitutional: No symptom reported Ears, Nose, & Throat: No symptom reported Eyes: No symptom reported Neurological: No symptoms reported Pulmonary/Respiratory: SOB, HAWKINS, PND, orthopnea Cardiovascular: BLE edema Gastrointestinal: Increased abdominal girth Genitourinary: No symptom reported Musculoskeletal: No symptom reported Skin: No symptom reported Psychiatric: No symptom reported Endocrine: No symptom reported Hemotologic/Lymphatic: No symptom reported Vital Signs Vital Signs Date Time Temp Pulse Resp B/P (MAP) Pulse Ox O2 Delivery O2 Flow Rate FiO2 07/20/25 14:30 181/108 07/20/25 14:30 75 07/20/25 08:26 95 Nasal Cannula 2.0 07/20/25 08:26 28 07/20/25 07:12 97.9 20 97.9 Physical Exam GENERAL: Alert and oriented x 3. No acute distress. Morbidly obese. EYES: PERRL, EOMI. Anicteric. HENT: Moist mucous membranes. LUNGS: Diminished bilateral breath sounds. CARDIOVASCULAR: Regular rate and rhythm. ABDOMEN: Soft, nontender and nondistended. EXTREMITIES: BLE nonpitting edema. NEUROLOGIC: No focal neurological deficits. SKIN: Warm, dry. Labs/Diagnostic Data Labs Test 07/20/25 11:46 07/20/25 11:36 07/20/25 01:41 07/20/25 01:39 Range/Units White Blood Count 10.6 4.4-10.8 10^3/uL Red Blood Count 4.02 L 4.5-5.90 10^6/uL Hemoglobin 11.5 L 13.5-17.5 g/dL Hematocrit 33.8 L 41.0-53.0 % Mean Corpuscular Volume 84.0 80.0-100.0 fL Mean Corpuscular Hemoglobin 28.5 28.0-32.0 pg Mean Corpuscular Hemoglobin Concent 33.9 32.0-36.0 g/dL Red Cell Distribution Width 15.5 H 11.8-14.3 % Platelet Count 298 140-450 10^3/uL Mean Platelet Volume 6.5 L 6.9-10.8 fL Neutrophils (%) (Auto) 78.5 37.0-80.0 % Lymphocytes (%) (Auto) 14.7 10.0-50.0 % Monocytes (%) (Auto) 5.3 0.0-12.0 % Eosinophils (%) (Auto) 1.1 0.0-7.0 % Basophils (%) (Auto) 0.4 0.0-2.0 % Neutrophils # (Auto) 8.3 1.6-8.6 10 ^3/uL Lymphocytes # (Auto) 1.6 0.4-5.4 10 ^3/uL Monocytes # (Auto) 0.6 0-1.3 10 ^3/uL Eosinophils # (Auto) 0.1 0-0.8 10 ^3/uL Basophils # (Auto) 0 0-0.2 10 ^3/uL Nucleated Red Blood Cells 0.0 % Sodium Level 141 136-145 mmol/L Potassium Level 3.9 3.5-5.1 mmol/L Chloride Level 102 98-107 mmol/L Carbon Dioxide Level 30 20-31 mmol/L Anion Gap 9 5-15 Blood Urea Nitrogen 22 9-23 mg/dL Creatinine 1.05 0.700-1.30 mg/dL Glomerular Filtration Rate Calc 86 >90 mL/min BUN/Creatinine Ratio 21.0 H 10.0-20.0 Serum Glucose 139 H 74-106 mg/dL Hemoglobin A1c 6.4 H <5.7 % A1C Calcium Level 9.5 8.7-10.4 mg/dL Magnesium Level 1.4 L 1.6-2.6 mg/dL Total Bilirubin 0.4 0.2-1.0 mg/dL Aspartate Amino Transferase (AST) 22 13-40 U/L Alanine Aminotransferase (ALT) 21 7-40 U/L Alkaline Phosphatase 200 H 46-116 U/L B-Type Natriuretic Peptide 32.92 0-100 pg/mL Total Protein 7.2 5.7-8.2 g/dL Albumin 4.3 3.2-4.8 g/dL Triglycerides Level 127 < 150 mg/dL Cholesterol Level 106 < 200 mg/dL LDL Cholesterol 53 < 100 mg/dL HDL Cholesterol 30 L 40-59 mg/dL Thyroid Stimulating Hormone (TSH) 0.74 0.55-4.78 uIU/mL POC Glucose 139 H 70-106 mg/dl Urine Color Light-yellow Yellow Urine Clarity Clear Clear Urine pH 5.5 5.0-9.0 Urine Specific [place] 1.014 1.001-1.035 Urine Protein 2+ H Negative Urine Ketones Negative Negative Urine Blood 1+ H Negative /uL Urine Nitrite Negative Negative Urine Bilirubin Negative Negative Urine Urobilinogen Normal Negative mg/dL Urine Leukocyte Esterase Negative Negative /uL Urine RBC 3 0 - 3 /hpf Urine Microscopic WBC < 1 0-3 /HPF Urine Squamous Epithelial Cells Few <5 /hpf Urine Bacteria None seen None Seen /hpf Urine Mucus Few None Seen Urine Sperm Present None Seen /hpf Urine Glucose Normal Normal mg/dL Troponin I High Sensitivity 15 </=54 ng/L Test 07/20/25 00:17 Range/Units Blood Gas Specimen Type Arterial Blood Gas Sample Site Right radial Blood Gas Patient Temperature 37.0 Arterial Blood Date Drawn [id number] Arterial Blood pH 7.383 7.350-7.450 Arterial Blood Partial Pressure CO2 43.8 35.0-48.0 mmHg Arterial Blood Partial Pressure O2 70.7 L 83.0-108.0 mmHg Arterial Blood HCO3 25.5 21.0-28.0 mmol/L Arterial Blood Oxygen Saturation 94.2 94.0-98.0 % Arterial Blood Base Excess 0.3 -2.0-3.0 mmol/L Arterial Blood Oxyhemoglobin 92.4 L 94.0-98.0 % Arterial Blood Carboxyhemoglobin 1.4 0.5-1.5 % Arterial Blood Methemoglobin 0.5 0.0-1.5 % Arterial Blood Deoxyhemoglobin 5.7 H 0.0-5.0 % Harpal Test Positive Blood Gas Total Hemoglobin 11.30 L 13.5-17.5 g/dL Blood Gas Modality Room air Blood Gas Spontaneous Rate 18 FiO2 % 21.0 Assessment Hypertensive urgency. De Salvatore decompensated unspecified HF, NYHA Class III. Insulin-dependent diabetes mellitus (HgbA1C 6.4%). Dyslipidemia. Morbid obesity. Plan/Recommendation I agree with your ongoing assessment and care of plan. Patient has been seen by Svetlana Beard NP on my behalf, her and I discussed the plan with the patient. We will continue further cardiac evaluation with a transthoracic echocardiogram to rule out structural heart disease. In the meantime, initiate GDMT and titrate as tolerated. Continue preload and afterload reduction, strict I&Os, daily weight, and fluid restriction. Continue aggressive blood pressure control. Replete electrolytes as necessary. Monitor ECG changes closely and notify accordingly. Additional plan as per the hospital course. Plan discussed with: Patient NYHA Physical activity limitations: Class3(Marked) ordinary Date of Service: Jul 20, 2025 Billing Provider: MAGGIE EVANS MD Cardiology Common Codes: [id number] INP/OBS CARE (High) Cardiology Consultation Codes: [id number] CONSULT <45MIN MAGGIE EVANS MD Jul 20, 2025 15:21
[2025-07-21] VITALS (10 sets, daily range): BP systolic 104–169; BP diastolic 46–89; PULSE 67–81; RESP 16–19; TEMP 97.5–98.1; O2SAT 94–99
[2025-07-21 07:02] LABS: Chloride 102 mmol/L (98-107); Potassium 4.0 mmol/L (3.5-5.1); Sodium 140 mmol/L (136-145)
[2025-07-21 07:03] LABS: Anion Gap 10 (5-15); Calcium 8.7 mg/dL (8.7-10.4); Carbon Dioxide 28 mmol/L (20-31)
[2025-07-21 07:08] LABS: BUN/Creatinine Ratio 27.5 (10.0-20.0); Blood Urea Nitrogen 30 mg/dL (9-23); Glucose 235 mg/dL (74-106)
[2025-07-21] MEDS: EMPAGLIFLOZIN 10 MG TAB PO SCH (10:19)
--- NOTE | 2025-07-21 12:13 | DVHPN2 ---
Subjective Patient continues to report having shortness of breath ambulation as well as lower extremity swelling. Reviewed: Care Plan, H&P, Labs, Medications Changes from previous H/P or p: No Changes General: Per HPI Objective Vitals Vital Signs Date Time Temp Pulse Resp B/P (MAP) Pulse Ox O2 Delivery O2 Flow Rate FiO2 07/21/25 11:54 97.7 73 18 161/83 (109) 98 97.7 07/21/25 08:15 Nasal Cannula 2.0 07/21/25 08:15 28 Intake/Output Intake and Output 07/21/25 06:59 Intake Total 300 ml Balance 300 ml Intake Oral 200 ml IV Total 100 ml # Voids 1 General Appearance: Alert, Oriented X3, Cooperative, mild distress HEENT: Atraumatic, PERRLA Lungs: Clear to auscultation, Normal air movement Cardiovascular: Normal S1, Normal S2 Abdomen: Normal bowel sounds, Soft, No tenderness Genitourinary: No Apparent Abnormalities Musculoskeletal: Normal sensory function, Normal motor function Extremities: Normal pulses, Other (Lower extremity swelling) Neuro: Normal gait, Normal speech Skin: Dry, Intact Psych/Mental Status: Mental status NL, Mood NL Medications Current Medications Medications Dose Ordered Sig/Carlotta Route Start Time Stop Time Status Last Admin Dose Admin Atorvastatin Calcium 40 mg HS PO 07/20/25 22:00 07/20/25 23:10 40 MG Lisinopril 40 mg DAILY PO 07/20/25 10:00 07/21/25 10:18 40 MG Metoprolol Tartrate 25 mg BID PO 07/20/25 10:00 07/21/25 10:19 25 MG Hydralazine HCl 10 mg Q6HP PRN IV 07/20/25 01:00 07/20/25 14:30 10 MG Aspirin 81 mg DAILY PO 07/20/25 10:00 07/21/25 10:17 81 MG Diagnostic Test (Pha) 1 strip ACHS 07/20/25 07:00 07/21/25 10:19 1 STRIP Insulin Human Regular ACHS SC 07/20/25 07:00 07/21/25 11:11 4 UNITS Dextrose 50 ml UD PRN IV 07/20/25 01:00 Acetaminophen/ Hydrocodone Bitart 1 tab Q4HP PRN PO 07/20/25 01:00 Temazepam 15 mg QHSP PRN PO 07/20/25 01:00 Ondansetron HCl 4 mg Q4HP PRN IV 07/20/25 01:00 Acetaminophen 650 mg Q6HP PRN PO 07/20/25 01:00 Nitroglycerin 0.4 mg Q5MINP PRN SL 07/20/25 01:00 Morphine Sulfate 2 mg Q30M PRN IV 07/20/25 01:00 Albuterol 2.5 mg Q6HPRN PRN NEB 07/20/25 01:00 Furosemide 40 mg BIDD IV 07/20/25 18:00 07/21/25 06:26 40 MG Empaglifozin 10 mg DAILY PO 07/21/25 10:00 07/21/25 10:19 10 MG Laboratory Results Laboratory Tests 07/20/25 11:46 07/21/25 06:24 Chemistry Test 07/21/25 06:24 Calcium Level 8.7 mg/dL (8.7-10.4) Magnesium Level 1.7 mg/dL (1.6-2.6) Urinalysis Test 07/20/25 01:41 Urine Color Light-yellow (Yellow) Urine Clarity Clear (Clear) Urine pH 5.5 (5.0-9.0) Urine Specific [place] 1.014 (1.001-1.035) Urine Protein 2+ (Negative) H Urine Ketones Negative (Negative) Urine Blood 1+ /uL (Negative) H Urine Nitrite Negative (Negative) Urine Bilirubin Negative (Negative) Urine Urobilinogen Normal mg/dL (Negative) Urine Leukocyte Esterase Negative /uL (Negative) Urine RBC 3 /hpf (0 - 3) Urine Microscopic WBC < 1 /HPF (0-3) Urine Squamous Epithelial Cells Few /hpf (<5) Urine Bacteria None seen /hpf (None Seen) Urine Mucus Few (None Seen) Urine Sperm Present /hpf (None Seen) Urine Glucose Normal mg/dL (Normal) Labs and/or images reviewed: Labs reviewed by me, Image(s) reviewed by me Assessment/Plan Assessment/Plan Impression: -probable acute diastolic heart failure -morbid obesity -diabetes mellitus type 2 -hypomagnesemia -dyslipidemia Plan: Events: Patient has persistent bilateral lower extremity swelling. Continues to be on O2 supplementation. Repeat chest x-ray with persistent pulmonary vascular congestion -cardiology consultation: Recommendations reviewed -echocardiogram pending -guideline directed medical therapy -IV diuresis -regular insulin sliding scale -repeat labs in a.m. Total time spent with patient discussing and formulating plan of care: 35 minutes. This medical document was created using an electronic medical record system with [employer] dictation system. Although this document has been carefully reviewed, there may still be some phonetic and typographical errors. These areas are purely typographical due to imperfections of the software programs, and do not reflect any compromise in the patient's medical care. Plan discussed with: Patient, Other (RN) My Orders Orders - CHANTALE MINOR NP Procedure Category Date Status Time Chest Portable XY 07/21/25 Taken 11:00 Metoprolol Tartrate PHA 07/21/25 Transmitted Tablet (Lopressor Ta 22:00 Basic Metabolic Panel LAB 07/22/25 Verified 04:00 Magnesium LAB 07/22/25 Verified 04:00 Date of Service: Jul 21, 2025 Billing Provider: CHANTALE MINOR NP Common Visit Codes: [id number] INP/OBS CARE(HIGH) CHANTALE MINOR NP Jul 21, 2025 12:12
--- NOTE | 2025-07-21 13:06 | DVH ---
INDICATION: CHF TECHNIQUE: Single frontal view of the chest was obtained. COMPARISON: XY CHEST PORTABLE on DOS: 07/19/25, XY CHEST PORTABLE on DOS: 07/19/25 FINDINGS: Pulmonary vascular congestion. No significant pleural effusion. No pneumothorax. Mildly enlarged cardiomediastinal silhouette. IMPRESSION: Cardiomegaly and pulmonary vascular congestion.
[2025-07-21] MEDS: METOPROLOL TARTRATE 25 MG TAB PO SCH (22:24)
--- NOTE | 2025-07-21 23:34 | DVHPN2 ---
Progress Note - Dictate Date Seen: Jul 21, 2025 Medical Necessity Reason Pt with a Central, PICC or Fol: No Subjective Patient was seen and evaluated in follow up. Patient is on 2 LPM NC. Patient reports shortness of breath with ambulation. BUN 30, GLUC 200. Chest x-ray shows cardiomegaly and pulmonary vascular congestion. Telemetry reviewed. vital signs Vital Sign Date Time Temp Pulse Resp B/P (MAP) Pulse Ox O2 Delivery O2 Flow Rate FiO2 07/21/25 20:37 99 Nasal Cannula* 2 28 07/21/25 18:02 140/84 07/21/25 16:54 98.1 67 18 98.1 Total Intake and Output 07/20/25 07/20/25 07/21/25 15:00 23:00 07:00 Intake Total 100 ml 200 ml Balance 100 ml 200 ml medications Current Medications Medications Dose Ordered Sig/Carlotta Route Start Time Stop Time Status Last Admin Dose Admin Atorvastatin Calcium 40 mg HS PO 07/20/25 22:00 07/20/25 23:10 40 MG Lisinopril 40 mg DAILY PO 07/20/25 10:00 07/21/25 10:18 40 MG Hydralazine HCl 10 mg Q6HP PRN IV 07/20/25 01:00 07/21/25 16:47 10 MG Aspirin 81 mg DAILY PO 07/20/25 10:00 07/21/25 10:17 81 MG Diagnostic Test (Pha) 1 strip ACHS 07/20/25 07:00 07/21/25 17:28 1 STRIP Insulin Human Regular ACHS SC 07/20/25 07:00 07/21/25 18:09 3 UNITS Dextrose 50 ml UD PRN IV 07/20/25 01:00 Acetaminophen/ Hydrocodone Bitart 1 tab Q4HP PRN PO 07/20/25 01:00 Temazepam 15 mg QHSP PRN PO 07/20/25 01:00 Ondansetron HCl 4 mg Q4HP PRN IV 07/20/25 01:00 Acetaminophen 650 mg Q6HP PRN PO 07/20/25 01:00 Nitroglycerin 0.4 mg Q5MINP PRN SL 07/20/25 01:00 Morphine Sulfate 2 mg Q30M PRN IV 07/20/25 01:00 Albuterol 2.5 mg Q6HPRN PRN NEB 07/20/25 01:00 Furosemide 40 mg BIDD IV 07/20/25 18:00 07/21/25 18:02 40 MG Empaglifozin 10 mg DAILY PO 07/21/25 10:00 07/21/25 10:19 10 MG Metoprolol Tartrate 50 mg BID PO 07/21/25 22:00 objective GENERAL: Alert and oriented x 3. No acute distress. Morbidly obese. EYES: PERRL, EOMI. Anicteric. HENT: Moist mucous membranes. LUNGS: Diminished bilateral breath sounds. CARDIOVASCULAR: Regular rate and rhythm. ABDOMEN: Soft, nontender and nondistended. EXTREMITIES: BLE nonpitting edema. NEUROLOGIC: No focal neurological deficits. SKIN: Warm, dry. laboratory and microbiology Laboratory Tests 07/21/25 06:24 07/20/25 11:46 Test 07/21/25 06:24 Range/Units Serum Glucose 235 H 74-106 mg/dL Problem List Hypertensive urgency. [place] decompensated unspecified HF, NYHA Class III. Insulin-dependent diabetes mellitus (HgbA1C 6.4%). Dyslipidemia. Morbid obesity. Assessment/Plan Continued all current supportive medical care. Morphine and [place] for pain management. Aspirin, Lipitor, Metoprolol. Diuretics with Lasix. IV Hydralazine for SBP >160. Lisinopril. Nitro SL. Additional plan as per the hospital course. Plan discussed with: Patient MAGGIE EVANS MD Jul 21, 2025 22:07
[2025-07-22] VITALS (9 sets, daily range): BP systolic 114–181; BP diastolic 71–96; PULSE 64–97; RESP 18–19; TEMP 97.5–98.3; O2SAT 94–98
--- NOTE | 2025-07-22 01:21 | DVHSR ---
APPROVED REPORT EXAM: Two-dimensional and M-mode echocardiogram with Doppler and color Doppler. Blood Pressure: 142/73 mmHg INDICATION EF RISK FACTORS Height: 71, Weight: 332 DIMENSIONS LVDd 5.3 (3.8-5.7cm) LA (2D) 4.8 (1.9-4.0cm) Aortic Root 4.0 (2.0-3.7cm) LVDs 3.3 (2.5-4.0cm) LA (MM) (1.9-4.0cm) Aortic Cusp Exc 1.7 (1.5-2.0cm) EF (%) 66.0 (55-70%) Rt. Atrium 4.5 (1.9-4.0cm) Asc. Aorta cm Mitral Valve Mitral Mitral Stenosis E wave 0.96m/s MV Mean GR. mmHg A wave 0.78m/s MV Peak GR. mmHg E/A ratio 1.2 2D MVA cm2 DECEL Time 244ms PRESS 1/2 Time 60ms IVRT ms Dop MVA 3.68cm2 Aortic Valve Aortic Valve Aortic Stenosis V1 1.06m/s AO Mean GR. 9mmHg V2 1.89m/s AO Peak GR. 14mmHg LVOT Diameter 2.2 (1.8-2.4cm) Doppler TONNY 2.13cm2 Pulmonic Valve V2 1.10m/s Tricuspid Valve TR Velocity 2.29m/s RVSP 36mmHg Conclusion NORMAL LV EF AND IS 65% NORMAL VALVES NORMAL RV FUNCTION NO EFFUSION
[2025-07-22 07:15] LABS: Anion Gap 9 (5-15); Carbon Dioxide 29 mmol/L (20-31); Chloride 103 mmol/L (98-107); Potassium 4.1 mmol/L (3.5-5.1); Sodium 141 mmol/L (136-145)
[2025-07-22 07:16] LABS: Calcium 9.3 mg/dL (8.7-10.4)
[2025-07-22 07:21] LABS: BUN/Creatinine Ratio 20.5 (10.0-20.0); Magnesium 1.8 mg/dL (1.6-2.6)
[2025-07-22 07:24] LABS: Blood Urea Nitrogen 25 mg/dL (9-23); Glucose 195 mg/dL (74-106)
--- NOTE | 2025-07-22 10:45 | DVHPN2 ---
Subjective Patient reports that his shortness of breath has improved. Has been titrated off of oxygen. Continues to have severe swelling to bilateral lower extremities. Reviewed: Care Plan, H&P, Labs, Medications Changes from previous H/P or p: No Changes General: Per HPI Objective Vitals Vital Signs Date Time Temp Pulse Resp B/P (MAP) Pulse Ox O2 Delivery O2 Flow Rate FiO2 07/22/25 09:33 134/83 07/22/25 09:32 67 07/22/25 09:00 98.2 19 98 98.2 07/22/25 08:00 Nasal Cannula* 2 28 Intake/Output Intake and Output 07/22/25 07:00 Intake Total 1040 ml Output Total 2850 ml Balance -1810 ml Intake Oral 1040 ml Output Urine Total 2850 ml General Appearance: Alert, Oriented X3, Cooperative, mild distress HEENT: Atraumatic, PERRLA Lungs: Clear to auscultation, Normal air movement Cardiovascular: Normal S1, Normal S2 Abdomen: Normal bowel sounds, Soft, No tenderness Genitourinary: No Apparent Abnormalities Musculoskeletal: Normal sensory function, Normal motor function Extremities: Normal pulses, Other (Lower extremity swelling) Neuro: Normal gait, Normal speech Skin: Dry, Intact Psych/Mental Status: Mental status NL, Mood NL Medications Current Medications Medications Dose Ordered Sig/Carlotta Route Start Time Stop Time Status Last Admin Dose Admin Atorvastatin Calcium 40 mg HS PO 07/20/25 22:00 07/21/25 22:25 40 MG Lisinopril 40 mg DAILY PO 07/20/25 10:00 07/22/25 09:33 40 MG Hydralazine HCl 10 mg Q6HP PRN IV 07/20/25 01:00 07/21/25 16:47 10 MG Aspirin 81 mg DAILY PO 07/20/25 10:00 07/22/25 09:32 81 MG Diagnostic Test (Pha) 1 strip ACHS 07/20/25 07:00 07/22/25 06:07 1 STRIP Insulin Human Regular ACHS SC 07/20/25 07:00 07/22/25 06:08 4 UNITS Dextrose 50 ml UD PRN IV 07/20/25 01:00 Acetaminophen/ Hydrocodone Bitart 1 tab Q4HP PRN PO 07/20/25 01:00 Temazepam 15 mg QHSP PRN PO 07/20/25 01:00 Ondansetron HCl 4 mg Q4HP PRN IV 07/20/25 01:00 Acetaminophen 650 mg Q6HP PRN PO 07/20/25 01:00 Nitroglycerin 0.4 mg Q5MINP PRN SL 07/20/25 01:00 Morphine Sulfate 2 mg Q30M PRN IV 07/20/25 01:00 Albuterol 2.5 mg Q6HPRN PRN NEB 07/20/25 01:00 Furosemide 40 mg BIDD IV 07/20/25 18:00 07/22/25 06:07 40 MG Empaglifozin 10 mg DAILY PO 07/21/25 10:00 07/22/25 09:32 10 MG Metoprolol Tartrate 50 mg BID PO 07/21/25 22:00 07/22/25 09:32 50 MG Laboratory Results Laboratory Tests 07/20/25 11:46 07/22/25 06:02 Chemistry Test 07/22/25 06:02 Calcium Level 9.3 mg/dL (8.7-10.4) Magnesium Level 1.8 mg/dL (1.6-2.6) Urinalysis Test 07/20/25 01:41 Urine Color Light-yellow (Yellow) Urine Clarity Clear (Clear) Urine pH 5.5 (5.0-9.0) Urine Specific [place] 1.014 (1.001-1.035) Urine Protein 2+ (Negative) H Urine Ketones Negative (Negative) Urine Blood 1+ /uL (Negative) H Urine Nitrite Negative (Negative) Urine Bilirubin Negative (Negative) Urine Urobilinogen Normal mg/dL (Negative) Urine Leukocyte Esterase Negative /uL (Negative) Urine RBC 3 /hpf (0 - 3) Urine Microscopic WBC < 1 /HPF (0-3) Urine Squamous Epithelial Cells Few /hpf (<5) Urine Bacteria None seen /hpf (None Seen) Urine Mucus Few (None Seen) Urine Sperm Present /hpf (None Seen) Urine Glucose Normal mg/dL (Normal) Labs and/or images reviewed: Labs reviewed by me, Image(s) reviewed by me Assessment/Plan Assessment/Plan Impression: -probable acute diastolic heart failure -morbid obesity -diabetes mellitus type 2 -hypomagnesemia -dyslipidemia Plan: Events: Patient has persistent bilateral lower extremity swelling. Off O2 supplementation -cardiology consultation: Recommendations reviewed -echocardiogram: Results reviewed -guideline directed medical therapy -IV diuresis -regular insulin sliding scale : Add metformin Total time spent with patient discussing and formulating plan of care: 35 minutes. This medical document was created using an electronic medical record system with [employer] dictation system. Although this document has been carefully reviewed, there may still be some phonetic and typographical errors. These areas are purely typographical due to imperfections of the software programs, and do not reflect any compromise in the patient's medical care. Plan discussed with: Patient, Other (RN) My Orders Orders - CHANTALE MINOR NP Procedure Category Date Status Time Chest Portable XY 07/21/25 Resulted 11:00 Metoprolol Tartrate PHA 07/21/25 In Process Tablet (Lopressor Ta 22:00 Date of Service: Jul 22, 2025 Billing Provider: CHANTALE MINOR NP Common Visit Codes: [id number] INP/OBS CARE(HIGH) CHANTALE MINOR NP Jul 22, 2025 10:44
[2025-07-22] MEDS: ACETAMINOPHEN 325 MG TAB PO PRN (14:33)
--- NOTE | 2025-07-22 22:35 | DVHPN2 ---
Progress Note - Dictate Date Seen: Jul 22, 2025 Medical Necessity Reason Pt with a Central, PICC or Fol: No Subjective Patient was seen and evaluated in follow up. Patient reports that his shortness of breath is improving. BUN 25, GLUC 207. Telemetry reviewed. vital signs Vital Sign Date Time Temp Pulse Resp B/P (MAP) Pulse Ox O2 Delivery O2 Flow Rate FiO2 07/22/25 10:32 85 146/86 07/22/25 09:45 96 Room Air* 0 21 07/22/25 09:00 98.2 19 98.2 Total Intake and Output 07/21/25 07/21/25 07/22/25 15:00 23:00 07:00 Intake Total 640 ml 400 ml Output Total 800 ml 650 ml 1400 ml Balance -800 ml -10 ml -1000 ml medications Current Medications Medications Dose Ordered Sig/Carlotta Route Start Time Stop Time Status Last Admin Dose Admin Atorvastatin Calcium 40 mg HS PO 07/20/25 22:00 07/21/25 22:25 40 MG Lisinopril 40 mg DAILY PO 07/20/25 10:00 07/22/25 09:33 40 MG Hydralazine HCl 10 mg Q6HP PRN IV 07/20/25 01:00 07/21/25 16:47 10 MG Aspirin 81 mg DAILY PO 07/20/25 10:00 07/22/25 09:32 81 MG Diagnostic Test (Pha) 1 strip ACHS 07/20/25 07:00 07/22/25 11:37 1 STRIP Insulin Human Regular ACHS SC 07/20/25 07:00 07/22/25 11:38 4 UNITS Dextrose 50 ml UD PRN IV 07/20/25 01:00 Acetaminophen/ Hydrocodone Bitart 1 tab Q4HP PRN PO 07/20/25 01:00 Temazepam 15 mg QHSP PRN PO 07/20/25 01:00 Ondansetron HCl 4 mg Q4HP PRN IV 07/20/25 01:00 Acetaminophen 650 mg Q6HP PRN PO 07/20/25 01:00 Nitroglycerin 0.4 mg Q5MINP PRN SL 07/20/25 01:00 Morphine Sulfate 2 mg Q30M PRN IV 07/20/25 01:00 Albuterol 2.5 mg Q6HPRN PRN NEB 07/20/25 01:00 Furosemide 40 mg BIDD IV 07/20/25 18:00 07/22/25 06:07 40 MG Empaglifozin 10 mg DAILY PO 07/21/25 10:00 07/22/25 09:32 10 MG Metoprolol Tartrate 50 mg BID PO 07/21/25 22:00 07/22/25 09:32 50 MG Metformin HCl 500 mg BIDWM PO 07/22/25 18:00 objective GENERAL: Alert and oriented x 3. No acute distress. Morbidly obese. EYES: PERRL, EOMI. Anicteric. HENT: Moist mucous membranes. LUNGS: Diminished bilateral breath sounds. CARDIOVASCULAR: Regular rate and rhythm. ABDOMEN: Soft, nontender and nondistended. EXTREMITIES: BLE nonpitting edema. NEUROLOGIC: No focal neurological deficits. SKIN: Warm, dry. laboratory and microbiology Laboratory Tests 07/22/25 06:02 07/20/25 11:46 Test 07/22/25 06:02 Range/Units Serum Glucose 195 H 74-106 mg/dL Problem List Hypertensive urgency. [place] decompensated unspecified HF, NYHA Class III. Insulin-dependent diabetes mellitus (HgbA1C 6.4%). Dyslipidemia. Morbid obesity. Assessment/Plan Continued all current supportive medical care. Morphine and [place] for pain management. Aspirin, Lipitor, Metoprolol. Diuretics with Lasix. IV Hydralazine for SBP >160. Lisinopril. Nitro SL. Additional plan as per the hospital course. Plan discussed with: Patient MAGGIE EVANS MD Jul 22, 2025 13:00
[2025-07-23] VITALS (11 sets, daily range): BP systolic 113–157; BP diastolic 65–89; PULSE 69–93; RESP 17–21; TEMP 98.2–98.8; O2SAT 86–97
[2025-07-23] MEDS: ONDANSETRON HCL 4 MG/2 ML VIAL IV PRN (04:01)
--- NOTE | 2025-07-23 13:20 | DVHPN2 ---
Subjective having some le swelling Reviewed: Care Plan, H&P, Labs, Medications Changes from previous H/P or p: No Changes General: Per HPI Objective Vitals Vital Signs Date Time Temp Pulse Resp B/P (MAP) Pulse Ox O2 Delivery O2 Flow Rate FiO2 07/23/25 11:57 156/80 07/23/25 09:44 92 Room Air* 0 21 07/23/25 09:38 88 07/23/25 09:00 98.4 21 98.4 Intake/Output Intake and Output 07/23/25 07:00 Intake Total 1200 ml Output Total 3350 ml Balance -2150 ml Intake Oral 1200 ml Output Urine Total 3350 ml # Bowel Movements 1 General Appearance: Alert, Oriented X3, Cooperative, mild distress HEENT: Atraumatic, PERRLA Lungs: Clear to auscultation, Normal air movement Cardiovascular: Normal S1, Normal S2 Abdomen: Normal bowel sounds, Soft, No tenderness Genitourinary: No Apparent Abnormalities Musculoskeletal: Normal sensory function, Normal motor function Extremities: Normal pulses, Other (Lower extremity swelling) Neuro: Normal gait, Normal speech Skin: Dry, Intact Psych/Mental Status: Mental status NL, Mood NL Medications Current Medications Medications Dose Ordered Sig/Carlotta Route Start Time Stop Time Status Last Admin Dose Admin Atorvastatin Calcium 40 mg HS PO 07/20/25 22:00 07/22/25 21:56 40 MG Lisinopril 40 mg DAILY PO 07/20/25 10:00 07/23/25 08:38 40 MG Hydralazine HCl 10 mg Q6HP PRN IV 07/20/25 01:00 07/23/25 11:57 10 MG Aspirin 81 mg DAILY PO 07/20/25 10:00 07/23/25 08:37 81 MG Diagnostic Test (Pha) 1 strip ACHS 07/20/25 07:00 07/23/25 11:50 1 STRIP Insulin Human Regular ACHS SC 07/20/25 07:00 07/23/25 11:56 6 UNITS Dextrose 50 ml UD PRN IV 07/20/25 01:00 Acetaminophen/ Hydrocodone Bitart 1 tab Q4HP PRN PO 07/20/25 01:00 Temazepam 15 mg QHSP PRN PO 07/20/25 01:00 Ondansetron HCl 4 mg Q4HP PRN IV 07/20/25 01:00 07/23/25 04:01 4 MG Acetaminophen 650 mg Q6HP PRN PO 07/20/25 01:00 07/22/25 14:33 650 MG Nitroglycerin 0.4 mg Q5MINP PRN SL 07/20/25 01:00 Morphine Sulfate 2 mg Q30M PRN IV 07/20/25 01:00 Albuterol 2.5 mg Q6HPRN PRN NEB 07/20/25 01:00 Furosemide 40 mg BIDD IV 07/20/25 18:00 07/23/25 06:42 40 MG Empaglifozin 10 mg DAILY PO 07/21/25 10:00 07/23/25 08:37 10 MG Metoprolol Tartrate 50 mg BID PO 07/21/25 22:00 07/23/25 08:38 50 MG Metformin HCl 500 mg BIDWM PO 07/22/25 18:00 07/23/25 08:37 500 MG Laboratory Results Laboratory Tests 07/20/25 11:46 07/22/25 06:02 Urinalysis Test 07/20/25 01:41 Urine Color Light-yellow (Yellow) Urine Clarity Clear (Clear) Urine pH 5.5 (5.0-9.0) Urine Specific [place] 1.014 (1.001-1.035) Urine Protein 2+ (Negative) H Urine Ketones Negative (Negative) Urine Blood 1+ /uL (Negative) H Urine Nitrite Negative (Negative) Urine Bilirubin Negative (Negative) Urine Urobilinogen Normal mg/dL (Negative) Urine Leukocyte Esterase Negative /uL (Negative) Urine RBC 3 /hpf (0 - 3) Urine Microscopic WBC < 1 /HPF (0-3) Urine Squamous Epithelial Cells Few /hpf (<5) Urine Bacteria None seen /hpf (None Seen) Urine Mucus Few (None Seen) Urine Sperm Present /hpf (None Seen) Urine Glucose Normal mg/dL (Normal) Assessment/Plan Assessment/Plan -probable acute diastolic heart failure -morbid obesity -diabetes mellitus type 2 -hypomagnesemia -dyslipidemia Plan: Events: Patient has persistent bilateral lower extremity swelling. Off O2 supplementation -cardiology consultation: Recommendations reviewed -echocardiogram: Results reviewed -guideline directed medical therapy -IV diuresis -regular insulin sliding scale : Add metformin Total time spent with patient discussing and formulating plan of care: 35 minutes. Plan discussed with: Patient Date of Service: Jul 23, 2025 Billing Provider: DOUG MAGAÑA MD Common Visit Codes: [id number] INP/OBS CARE(HIGH) DOUG MAGAÑA MD Jul 23, 2025 13:20
--- NOTE | 2025-07-23 23:01 | DVHPN2 ---
Progress Note - Dictate Date Seen: Jul 23, 2025 Medical Necessity Reason Pt with a Central, PICC or Fol: No Subjective Patient was seen and evaluated in follow up. Patient is complains of BLE pain and swelling. BS are in the 250's. Telemetry reviewed. vital signs Vital Sign Date Time Temp Pulse Resp B/P (MAP) Pulse Ox O2 Delivery O2 Flow Rate FiO2 07/23/25 13:00 98.5 78 20 156/80 (105) 96 98.5 07/23/25 09:44 Room Air* 0 21 Total Intake and Output 07/22/25 07/22/25 07/23/25 15:00 23:00 07:00 Intake Total 1200 ml Output Total 850 ml 1000 ml 1500 ml Balance -850 ml 200 ml -1500 ml medications Current Medications Medications Dose Ordered Sig/Carlotta Route Start Time Stop Time Status Last Admin Dose Admin Atorvastatin Calcium 40 mg HS PO 07/20/25 22:00 07/22/25 21:56 40 MG Lisinopril 40 mg DAILY PO 07/20/25 10:00 07/23/25 08:38 40 MG Hydralazine HCl 10 mg Q6HP PRN IV 07/20/25 01:00 07/23/25 11:57 10 MG Aspirin 81 mg DAILY PO 07/20/25 10:00 07/23/25 08:37 81 MG Diagnostic Test (Pha) 1 strip ACHS 07/20/25 07:00 07/23/25 11:50 1 STRIP Insulin Human Regular ACHS SC 07/20/25 07:00 07/23/25 11:56 6 UNITS Dextrose 50 ml UD PRN IV 07/20/25 01:00 Acetaminophen/ Hydrocodone Bitart 1 tab Q4HP PRN PO 07/20/25 01:00 Temazepam 15 mg QHSP PRN PO 07/20/25 01:00 Ondansetron HCl 4 mg Q4HP PRN IV 07/20/25 01:00 07/23/25 04:01 4 MG Acetaminophen 650 mg Q6HP PRN PO 07/20/25 01:00 07/22/25 14:33 650 MG Nitroglycerin 0.4 mg Q5MINP PRN SL 07/20/25 01:00 Morphine Sulfate 2 mg Q30M PRN IV 07/20/25 01:00 Albuterol 2.5 mg Q6HPRN PRN NEB 07/20/25 01:00 Furosemide 40 mg BIDD IV 07/20/25 18:00 07/23/25 06:42 40 MG Empaglifozin 10 mg DAILY PO 07/21/25 10:00 07/23/25 08:37 10 MG Metoprolol Tartrate 50 mg BID PO 07/21/25 22:00 07/23/25 08:38 50 MG Metformin HCl 500 mg BIDWM PO 07/22/25 18:00 07/23/25 08:37 500 MG objective GENERAL: Alert and oriented x 3. No acute distress. Morbidly obese. EYES: PERRL, EOMI. Anicteric. HENT: Moist mucous membranes. LUNGS: Diminished bilateral breath sounds. CARDIOVASCULAR: Regular rate and rhythm. ABDOMEN: Soft, nontender and nondistended. EXTREMITIES: BLE nonpitting edema. NEUROLOGIC: No focal neurological deficits. SKIN: Warm, dry. laboratory and microbiology Laboratory Tests 07/22/25 06:02 07/20/25 11:46 Test 07/22/25 06:02 Range/Units Serum Glucose 195 H 74-106 mg/dL Problem List Hypertensive urgency. [place] decompensated unspecified HF, NYHA Class III. Insulin-dependent diabetes mellitus (HgbA1C 6.4%). Dyslipidemia. Morbid obesity. Assessment/Plan Continued all current supportive medical care. Morphine and [place] for pain management. Aspirin, Lipitor, Metoprolol. Diuretics with Lasix. IV Hydralazine for SBP >160. Lisinopril. Nitro SL. Additional plan as per the hospital course. Plan discussed with: Patient MAGGIE EVANS MD Jul 23, 2025 14:09
[2025-07-24] VITALS (9 sets, daily range): BP systolic 119–181; BP diastolic 73–98; PULSE 60–86; RESP 16–20; TEMP 97.4–99.1; O2SAT 92–98
[2025-07-24 12:01] LABS: Potassium 4.1 mmol/L (3.5-5.1); Sodium 138 mmol/L (136-145)
[2025-07-24 12:02] LABS: Anion Gap 7 (5-15); Chloride 98 mmol/L (98-107)
[2025-07-24 12:03] LABS: Calcium 8.9 mg/dL (8.7-10.4); Carbon Dioxide 33 mmol/L (20-31)
[2025-07-24 12:07] LABS: BUN/Creatinine Ratio 24.0 (10.0-20.0)
[2025-07-24 12:13] LABS: Blood Urea Nitrogen 31 mg/dL (9-23); Glucose 263 mg/dL (74-106)
--- NOTE | 2025-07-24 16:08 | DVHPN2 ---
Subjective having some le swelling Reviewed: Care Plan, H&P, Labs, Medications Changes from previous H/P or p: No Changes General: Per HPI Objective Vitals Vital Signs Date Time Temp Pulse Resp B/P (MAP) Pulse Ox O2 Delivery O2 Flow Rate FiO2 07/24/25 13:00 97.6 63 20 128/73 (91) 92 97.6 07/24/25 08:00 Room Air* 0 N/A Nasal Cannula* Intake/Output Intake and Output 07/24/25 05:00 Intake Total 1200 ml Output Total 3000 ml Balance -1800 ml Intake Oral 1200 ml Output Urine Total 3000 ml # Voids 1 General Appearance: Alert, Oriented X3, Cooperative, mild distress HEENT: Atraumatic, PERRLA Lungs: Clear to auscultation, Normal air movement Cardiovascular: Normal S1, Normal S2 Abdomen: Normal bowel sounds, Soft, No tenderness Genitourinary: No Apparent Abnormalities Musculoskeletal: Normal sensory function, Normal motor function Extremities: Normal pulses, Other (Lower extremity swelling) Neuro: Normal gait, Normal speech Skin: Dry, Intact Psych/Mental Status: Mental status NL, Mood NL Medications Current Medications Medications Dose Ordered Sig/Carlotta Route Start Time Stop Time Status Last Admin Dose Admin Atorvastatin Calcium 40 mg HS PO 07/20/25 22:00 07/23/25 21:41 40 MG Lisinopril 40 mg DAILY PO 07/20/25 10:00 07/24/25 09:08 40 MG Hydralazine HCl 10 mg Q6HP PRN IV 07/20/25 01:00 07/23/25 11:57 10 MG Aspirin 81 mg DAILY PO 07/20/25 10:00 07/24/25 09:08 81 MG Diagnostic Test (Pha) 1 strip ACHS 07/20/25 07:00 07/24/25 11:45 1 STRIP Insulin Human Regular ACHS SC 07/20/25 07:00 07/24/25 11:52 6 UNITS Dextrose 50 ml UD PRN IV 07/20/25 01:00 Acetaminophen/ Hydrocodone Bitart 1 tab Q4HP PRN PO 07/20/25 01:00 Temazepam 15 mg QHSP PRN PO 07/20/25 01:00 Ondansetron HCl 4 mg Q4HP PRN IV 07/20/25 01:00 07/23/25 04:01 4 MG Acetaminophen 650 mg Q6HP PRN PO 07/20/25 01:00 07/23/25 21:50 650 MG Nitroglycerin 0.4 mg Q5MINP PRN SL 07/20/25 01:00 Morphine Sulfate 2 mg Q30M PRN IV 07/20/25 01:00 Furosemide 40 mg BIDD IV 07/20/25 18:00 07/24/25 06:27 40 MG Empaglifozin 10 mg DAILY PO 07/21/25 10:00 07/24/25 09:08 10 MG Metoprolol Tartrate 50 mg BID PO 07/21/25 22:00 07/24/25 09:09 50 MG Metformin HCl 500 mg BIDWM PO 07/22/25 18:00 07/24/25 09:08 500 MG Laboratory Results Laboratory Tests 07/20/25 11:46 07/24/25 11:37 Chemistry Test 07/24/25 11:37 Calcium Level 8.9 mg/dL (8.7-10.4) Urinalysis Test 07/20/25 01:41 Urine Color Light-yellow (Yellow) Urine Clarity Clear (Clear) Urine pH 5.5 (5.0-9.0) Urine Specific [place] 1.014 (1.001-1.035) Urine Protein 2+ (Negative) H Urine Ketones Negative (Negative) Urine Blood 1+ /uL (Negative) H Urine Nitrite Negative (Negative) Urine Bilirubin Negative (Negative) Urine Urobilinogen Normal mg/dL (Negative) Urine Leukocyte Esterase Negative /uL (Negative) Urine RBC 3 /hpf (0 - 3) Urine Microscopic WBC < 1 /HPF (0-3) Urine Squamous Epithelial Cells Few /hpf (<5) Urine Bacteria None seen /hpf (None Seen) Urine Mucus Few (None Seen) Urine Sperm Present /hpf (None Seen) Urine Glucose Normal mg/dL (Normal) Assessment/Plan Assessment/Plan -probable acute diastolic heart failure -morbid obesity -diabetes mellitus type 2 -hypomagnesemia -dyslipidemia Plan: Events: Patient has persistent bilateral lower extremity swelling. -cardiology consultation: Recommendations reviewed -echocardiogram: Results reviewed -guideline directed medical therapy -IV diuresis - Wean off oxygen -regular insulin sliding scale : Add metformin Total time spent with patient discussing and formulating plan of care: 35 minutes. Plan discussed with: Patient My Orders Orders - DOUG MAGAÑA MD Procedure Category Date Status Time Basic Metabolic Panel LAB 07/25/25 Verified 05:00 Basic Metabolic Panel LAB 07/26/25 Verified 05:00 Basic Metabolic Panel LAB 07/27/25 Verified 05:00 Basic Metabolic Panel LAB 07/28/25 Verified 05:00 Basic Metabolic Panel LAB 07/29/25 Verified 05:00 Date of Service: Jul 24, 2025 Billing Provider: DOUG MAGAÑA MD Common Visit Codes: [id number] INP/OBS CARE(HIGH) DOUG MAGAÑA MD Jul 24, 2025 16:08
[2025-07-24] MEDS: HYDROcodone-ACET 5/325MG TAB PO PRN (17:12)
--- NOTE | 2025-07-24 19:32 | DVHPN2 ---
Progress Note - Dictate Date Seen: Jul 24, 2025 Medical Necessity Reason Pt with a Central, PICC or Fol: No Subjective Patient was seen and evaluated in follow up. Patient remains with persistent BLE pain and swelling. CO2 33, BUN 31, GLUC 263. Telemetry reviewed. vital signs Vital Sign Date Time Temp Pulse Resp B/P (MAP) Pulse Ox O2 Delivery O2 Flow Rate FiO2 07/24/25 13:00 97.6 63 20 128/73 (91) 92 97.6 07/24/25 08:00 Room Air* 0 N/A Nasal Cannula* Total Intake and Output 07/23/25 07/23/25 07/24/25 15:00 23:00 07:00 Intake Total 1100 ml 100 ml Output Total 1900 ml 1100 ml Balance -800 ml -1000 ml medications Current Medications Medications Dose Ordered Sig/Carlotta Route Start Time Stop Time Status Last Admin Dose Admin Atorvastatin Calcium 40 mg HS PO 07/20/25 22:00 07/23/25 21:41 40 MG Lisinopril 40 mg DAILY PO 07/20/25 10:00 07/24/25 09:08 40 MG Hydralazine HCl 10 mg Q6HP PRN IV 07/20/25 01:00 07/23/25 11:57 10 MG Aspirin 81 mg DAILY PO 07/20/25 10:00 07/24/25 09:08 81 MG Diagnostic Test (Pha) 1 strip ACHS 07/20/25 07:00 07/24/25 11:45 1 STRIP Insulin Human Regular ACHS SC 07/20/25 07:00 07/24/25 11:52 6 UNITS Dextrose 50 ml UD PRN IV 07/20/25 01:00 Acetaminophen/ Hydrocodone Bitart 1 tab Q4HP PRN PO 07/20/25 01:00 Temazepam 15 mg QHSP PRN PO 07/20/25 01:00 Ondansetron HCl 4 mg Q4HP PRN IV 07/20/25 01:00 07/23/25 04:01 4 MG Acetaminophen 650 mg Q6HP PRN PO 07/20/25 01:00 07/23/25 21:50 650 MG Nitroglycerin 0.4 mg Q5MINP PRN SL 07/20/25 01:00 Morphine Sulfate 2 mg Q30M PRN IV 07/20/25 01:00 Furosemide 40 mg BIDD IV 07/20/25 18:00 07/24/25 06:27 40 MG Empaglifozin 10 mg DAILY PO 07/21/25 10:00 07/24/25 09:08 10 MG Metoprolol Tartrate 50 mg BID PO 07/21/25 22:00 07/24/25 09:09 50 MG Metformin HCl 500 mg BIDWM PO 07/22/25 18:00 07/24/25 09:08 500 MG objective GENERAL: Alert and oriented x 3. No acute distress. Morbidly obese. EYES: PERRL, EOMI. Anicteric. HENT: Moist mucous membranes. LUNGS: Diminished bilateral breath sounds. CARDIOVASCULAR: Regular rate and rhythm. ABDOMEN: Soft, nontender and nondistended. EXTREMITIES: BLE nonpitting edema. NEUROLOGIC: No focal neurological deficits. SKIN: Warm, dry. laboratory and microbiology Laboratory Tests 07/24/25 11:37 07/20/25 11:46 Test 07/24/25 11:37 Range/Units Serum Glucose 263 H 74-106 mg/dL Problem List Hypertensive urgency. [place] decompensated unspecified HF, NYHA Class III. Insulin-dependent diabetes mellitus (HgbA1C 6.4%). Dyslipidemia. Morbid obesity. Assessment/Plan Continued all current supportive medical care. Morphine and [place] for pain management. Aspirin, Lipitor, Metoprolol. Diuretics with Lasix. IV Hydralazine for SBP >160. Lisinopril. Nitro SL. Additional plan as per the hospital course. Plan discussed with: Patient MAGGIE EVANS MD Jul 24, 2025 14:38
[2025-07-25] VITALS (7 sets, daily range): BP systolic 118–174; BP diastolic 69–95; PULSE 60–78; RESP 16–20; TEMP 37.1; O2SAT 92–96
[2025-07-25 06:49] LABS: Anion Gap 10 (5-15); Carbon Dioxide 30 mmol/L (20-31); Chloride 98 mmol/L (98-107); Potassium 4.1 mmol/L (3.5-5.1); Sodium 138 mmol/L (136-145)
[2025-07-25 06:50] LABS: Calcium 9.1 mg/dL (8.7-10.4)
[2025-07-25 06:55] LABS: BUN/Creatinine Ratio 29.1 (10.0-20.0)
[2025-07-25 06:56] LABS: Blood Urea Nitrogen 34 mg/dL (9-23); Glucose 202 mg/dL (74-106)
[2025-07-25] MEDS ORDERED: NIFE1TAB30 PO (12:40)
--- NOTE | 2025-07-25 12:44 | DVHDS2 ---
Discharge Summary Date of Admission Jul 20, 2025 at 00:56 Date of Discharge: Jul 25, 2025 Admitting Diagnosis Acute on chronic respiratory failure Labs/Diagnostic Data: Laboratory Results Test 07/25/25 11:07 07/25/25 05:49 07/22/25 06:02 07/20/25 11:46 POC Glucose 209 mg/dl (70-106) Sodium Level 138 mmol/L (136-145) Potassium Level 4.1 mmol/L (3.5-5.1) Chloride Level 98 mmol/L (98-107) Carbon Dioxide Level 30 mmol/L (20-31) Anion Gap 10 (5-15) Blood Urea Nitrogen 34 mg/dL (9-23) Creatinine 1.17 mg/dL (0.700-1.30) Glomerular Filtration Rate Calc 75 mL/min (>90) BUN/Creatinine Ratio 29.1 (10.0-20.0) Serum Glucose 202 mg/dL (74-106) Calcium Level 9.1 mg/dL (8.7-10.4) Magnesium Level 1.8 mg/dL (1.6-2.6) White Blood Count 10.6 10^3/uL (4.4-10.8) Red Blood Count 4.02 10^6/uL (4.5-5.90) Hemoglobin 11.5 g/dL (13.5-17.5) Hematocrit 33.8 % (41.0-53.0) Mean Corpuscular Volume 84.0 fL (80.0-100.0) Mean Corpuscular Hemoglobin 28.5 pg (28.0-32.0) Mean Corpuscular Hemoglobin Concent 33.9 g/dL (32.0-36.0) Red Cell Distribution Width 15.5 % (11.8-14.3) Platelet Count 298 10^3/uL (140-450) Mean Platelet Volume 6.5 fL (6.9-10.8) Neutrophils (%) (Auto) 78.5 % (37.0-80.0) Lymphocytes (%) (Auto) 14.7 % (10.0-50.0) Monocytes (%) (Auto) 5.3 % (0.0-12.0) Eosinophils (%) (Auto) 1.1 % (0.0-7.0) Basophils (%) (Auto) 0.4 % (0.0-2.0) Neutrophils # (Auto) 8.3 10 ^3/uL (1.6-8.6) Lymphocytes # (Auto) 1.6 10 ^3/uL (0.4-5.4) Monocytes # (Auto) 0.6 10 ^3/uL (0-1.3) Eosinophils # (Auto) 0.1 10 ^3/uL (0-0.8) Basophils # (Auto) 0 10 ^3/uL (0-0.2) Nucleated Red Blood Cells 0.0 % Hemoglobin A1c 6.4 % A1C (<5.7) Total Bilirubin 0.4 mg/dL (0.2-1.0) Aspartate Amino Transferase (AST) 22 U/L (13-40) Alanine Aminotransferase (ALT) 21 U/L (7-40) Alkaline Phosphatase 200 U/L (46-116) B-Type Natriuretic Peptide 32.92 pg/mL (0-100) Total Protein 7.2 g/dL (5.7-8.2) Albumin 4.3 g/dL (3.2-4.8) Triglycerides Level 127 mg/dL (< 150) Cholesterol Level 106 mg/dL (< 200) LDL Cholesterol 53 mg/dL (< 100) HDL Cholesterol 30 mg/dL (40-59) Thyroid Stimulating Hormone (TSH) 0.74 uIU/mL (0.55-4.78) Test 07/20/25 01:41 07/20/25 01:39 07/20/25 00:17 Urine Color Light-yellow (Yellow) Urine Clarity Clear (Clear) Urine pH 5.5 (5.0-9.0) Urine Specific [place] 1.014 (1.001-1.035) Urine Protein 2+ (Negative) Urine Ketones Negative (Negative) Urine Blood 1+ /uL (Negative) Urine Nitrite Negative (Negative) Urine Bilirubin Negative (Negative) Urine Urobilinogen Normal mg/dL (Negative) Urine Leukocyte Esterase Negative /uL (Negative) Urine RBC 3 /hpf (0 - 3) Urine Microscopic WBC < 1 /HPF (0-3) Urine Squamous Epithelial Cells Few /hpf (<5) Urine Bacteria None seen /hpf (None Seen) Urine Mucus Few (None Seen) Urine Sperm Present /hpf (None Seen) Urine Glucose Normal mg/dL (Normal) Troponin I High Sensitivity 15 ng/L (</=54) Blood Gas Specimen Type Arterial Blood Gas Sample Site Right radial Blood Gas Patient Temperature 37.0 Arterial Blood Date Drawn Arterial Blood pH 7.383 (7.350-7.450) Arterial Blood Partial Pressure CO2 43.8 mmHg (35.0-48.0) Arterial Blood Partial Pressure O2 70.7 mmHg (83.0-108.0) Arterial Blood HCO3 25.5 mmol/L (21.0-28.0) Arterial Blood Oxygen Saturation 94.2 % (94.0-98.0) Arterial Blood Base Excess 0.3 mmol/L (-2.0-3.0) Arterial Blood Oxyhemoglobin 92.4 % (94.0-98.0) Arterial Blood Carboxyhemoglobin 1.4 % (0.5-1.5) Arterial Blood Methemoglobin 0.5 % (0.0-1.5) Arterial Blood Deoxyhemoglobin 5.7 % (0.0-5.0) [place] Test Positive Blood Gas Total Hemoglobin 11.30 g/dL (13.5-17.5) Blood Gas Modality Room air Blood Gas Spontaneous Rate 18 FiO2 % 21.0 Other Laboratory Tests 07/25/25 05:49 07/20/25 11:46 Brief Hx & Hospital Course: History of Present Illness 50-year-old male presents for evaluation of shortness for breath. Patient reports a one-week history of worsening shortness for breath with associated chest tightness and lower extremity swelling. He states symptoms worse with exertion. He also reports orthopnea. No fever or chills. Course of hospitalization: Patient was treated with IV diuretics, guideline directed medical therapy, as well as having echocardiogram performed which ruled out systolic heart failure. Patient is now euvolemic, weaned off of oxygen, with blood pressure better controlled. Patient will be discharged home and is instructed to continue all his home medications as previously prescribed. Patient will also be provided a new prescription in the form of nifedipine XL 60 mg p.o. daily. Patient is agreeable with discharge plan. All questions answered. Physical examination General: Alert and Oriented x3. No acute distress. Well-nourished. Eyes: EOMI. Anicteric. HENT: Moist mucous membranes. Lungs: Clear to auscultation bilaterally. No accessory muscle use. Cardiovascular: Regular rate and rhythm. No murmur. No JVD. Abdomen: Soft, non-tender and non-distended. No palpable masses. Extremities: No edema. Non-tender. Skin: No rashes or lesions. Warm. Neurologic: No focal neurological deficits. CN II-XII grossly intact, but not individually tested. Psychiatric: Cooperative. Appropriate mood and affect. Total time spent with patient discussing and formulating plan of care: 35 minutes. This medical document was created using an electronic medical record system with [employer] dictation system. Although this document has been carefully reviewed, there may still be some phonetic and typographical errors. These areas are purely typographical due to imperfections of the software programs, and do not reflect any compromise in the patient's medical care. Condition at Discharge: Fair Final Diagnosis/Problems List Acute diastolic heart failure, HFpEF Hypertensive crisis -morbid obesity -diabetes mellitus type 2 -hypomagnesemia -dyslipidemia Discharge Disposition: Home Discharge Instruct/Medications Diet: Cardiac 2g Na,low cholest Activity: No Restrictions, As Tolerated Follow Up/Referral: Follow up with PCP in 1-2 weeks Medications: Continue all previous home medications, metoprolol tartrate, lisinopril, furosemide, Lasix, glipizide, metformin. Nifedipine XL 60 mg p.o. daily Scheduled Nifedipine (Nifedipine Er), 1 TAB PO DAILY 36 Discharge Statement: "Patient was advised to return to the ER or call 911 if any headaches, dizziness, shortness of breath, chest pain, abdominal pain, bleeding, fevers, or worsening of medical condition. Patient was counseled about treatment plan, medications, possible side effects, patientverbalized understanding. All questions were answered to the best of my ability. This discharge took greater then 30 minutes in planning, reviewing documentation, counseling the patient, and discussing with other team members." ASSESSMENT ASSESSMENT Assessment Acute diastolic heart failure, HFpEF Date of Service: Jul 25, 2025 Billing Provider: CHANTALE MINOR NP Common Visit Codes: [id number] DISCH DAY >30min CHANTALE MINOR NP Jul 25, 2025 12:43
[2025-07-25] MEDS ORDERED: LABETALOL HCL 200 MG TAB PO SCH (22:00)
--- NOTE | 2025-07-26 01:17 | DVHPN2 ---
Progress Note - Dictate Date Seen: Jul 25, 2025 Medical Necessity Reason Pt with a Central, PICC or Fol: No Subjective Patient was seen and evaluated in follow up. Patient has no new complaints at this time. Patient denies any cardiac symptoms. Patient is cardiac stable for discharge. Telemetry reviewed. vital signs Vital Sign Date Time Temp Pulse Resp B/P (MAP) Pulse Ox O2 Delivery O2 Flow Rate FiO2 07/25/25 13:44 37.1 68 07/25/25 13:06 16 147/87 (107) 96 07/25/25 07:54 Room Air* 0 N/A Nasal Cannula* objective GENERAL: Alert and oriented x 3. No acute distress. Morbidly obese. EYES: PERRL, EOMI. Anicteric. HENT: Moist mucous membranes. LUNGS: Diminished bilateral breath sounds. CARDIOVASCULAR: Regular rate and rhythm. ABDOMEN: Soft, nontender and nondistended. EXTREMITIES: BLE nonpitting edema. NEUROLOGIC: No focal neurological deficits. SKIN: Warm, dry. laboratory and microbiology Laboratory Tests 07/25/25 05:49 07/20/25 11:46 Test 07/25/25 05:49 Range/Units Serum Glucose 202 H 74-106 mg/dL Problem List Hypertensive urgency. [place] decompensated unspecified HF, NYHA Class III. Insulin-dependent diabetes mellitus (HgbA1C 6.4%). Dyslipidemia. Morbid obesity. Assessment/Plan Continued all current supportive medical care. Morphine and [place] for pain management. Aspirin, Lipitor, Metoprolol. Diuretics with Lasix. IV Hydralazine for SBP >160. Lisinopril. Nitro SL. Additional plan as per the hospital course. Plan discussed with: Patient MAGGIE EVANS MD Jul 26, 2025 01:17
== END 2025-07-25 14:05 | disposition home or self-care (01) | DRG 194 ==
LOC: ER 21:12 → OVERFLOW 07-20 00:56 → TELE-WESTW 07-20 22:13
PROVIDERS: ADMIT Nurse Practitioner Acute Care; ATTEND Nurse Practitioner Acute Care
DX: I11.0 Hypertensive heart disease with heart failure (principal); J96.21 Acute and chronic respiratory failure with hypoxia; I50.31 Acute diastolic (congestive) heart failure; E66.01 Morbid (severe) obesity due to excess calories; E11.9 Type 2 diabetes mellitus without complications; I16.9 Hypertensive crisis, unspecified; F41.9 Anxiety disorder, unspecified; E78.5 Hyperlipidemia, unspecified; E83.42 Hypomagnesemia; Z82.49 Family history of ischemic heart disease and other diseases of the circulatory system; Z79.4 Long term (current) use of insulin; Z68.41 Body mass index [BMI] 40.0-44.9, adult
CPT/HCPCS: 36415; 36600; 71045; 80048; 80053; 80061; 81001; 82805; 82962; 83036; 83735; 83880; 84443; 84484; 85025; 93005; 93306; 99291; G0378; J1815; J2405